=== PATIENT | male | born 1945 | race Caucasian/White ===

== ENCOUNTER 2018-04-29 00:09 | Emergency (ER) | payer MEDICARE, SELFPAY ==
[2018-04-29 00:20] VITALS: BP 160/72; PULSE 73; RESP 18; TEMP 36.8; O2SAT 100; BMI 33.9
--- NOTE | 2018-04-29 00:21 | ED.GENADULT ---
HPI - General Adult General Chief complaint: Extremity Injury, Lower Stated complaint: knee pain, elbows scraped, fall at [facility] Time Seen by Provider: 04/29/18 00:21 Source: patient Mode of arrival: ambulatory Limitations: no limitations History of Present Illness HPI narrative: Patient is a 72-year-old male. Not on blood thinners. Here for evaluation of right knee injury and abrasions to both of his elbows. He states that earlier this evening he was at the [facility] [place] when he tripped over a step. He landed on his right knee and his right elbows. Did not hit his head. Was able to get up and ambulate afterwards. Was able to continue bowling. It was after he was bowling when he sat down to eat dinner when he noticed that his right knee was swelling and becoming painful. He has had a joint replacement in this knee in the past. He did put Band-Aids over the abrasions to both of his elbows. Related Data Home Medications Medication Instructions Recorded Confirmed hydrochlorothiazide 25 mg tablet 25 mg PO DAILY 07/16/17 07/16/17 lisinopril PO 07/16/17 07/16/17 meloxicam PO 07/16/17 07/16/17 Allergies Allergy/AdvReac Type Severity Reaction Status Date / Time No Known Drug Allergies Allergy Verified 07/16/17 16:33 Review of Systems Constitutional Denies frequent falls and Denies weakness ENT Ears, Nose, Mouth, and Throat: Denies vertigo, Denies dizziness and Denies disequilibrium Cardiovascular Denies chest pain, Denies palpitations and Denies dyspnea Respiratory Denies dyspnea Musculoskeletal Comments: Right knee pain and swelling Integumentary/Breasts Comments: Abrasions to both elbows Neurologic Denies vertigo, Denies dizziness, Denies frequent falls, Denies disequilibrium and Denies weakness Endocrine Denies palpitations Hematologic/Lymphatic Denies easy bleeding and Denies easy bruising [facility] Medical History Hypertension (Acute) Social History Smoking Status: Former smoker Social History Smoking Status: Former smoker Exam Initial Vital Signs Initial Vital Signs: Vital Signs Temperature 98.3 F 04/29/18 00:20 Pulse Rate 73 04/29/18 00:20 Respiratory Rate 18 04/29/18 00:20 Blood Pressure 160/72 H 04/29/18 00:20 Pulse Oximetry 100 04/29/18 00:20 Const General: cooperative, well developed, well groomed and No acute distress Orientation: alert, awake and oriented x3 Resp Effort & Inspection: normal respiratory effort Cardio Rate: regular rate Skin Other: Patient has 1 cm x 1 cm superficial abrasions to bilateral elbows over the olecranon process. No active bleeding. Skin over the right knee has bruising but no breaks in the skin. Neuro Other: Sensation intact to light touch distal right lower extremity Extrem Other: Full range of motion of both elbows. Bilateral hips unremarkable. Patient is able to do a straight leg raise with his right leg. Does have a significant amount of swelling around the right knee with bruising on the medial aspect. No tibia/fibula tenderness. Psych Appearance: grossly normal and well kempt Procedures Joint Aspiration Joint Asp./Inject. 1: Time Out Performed: Yes Side of body: right Joint Aspirated: knee Ultrasound Guidance: No Skin Prep: Povidone-Iodine1% Local Anesthetic: lidocaine 1% Amount of anesthesia used (mL): 6 Needle Size Used: 18G Fluid Obtained: bloody Total fluid obtained (mL): 5 Patient Tolerated Procedure: Well Complications: none Course Orders Ordered: ED Orders 04/29/18 00:26 XR knee RT 3V Stat Vital Signs - 8 hr 04/29/18 00:20 Temperature 98.3 F Pulse Rate 73 Respiratory Rate 18 Blood Pressure 160/72 H Pulse Oximetry 100 Medical Decision Making Imaging Data Right knee x-ray: My impression: No fractures, no dislocations, does have soft tissue swelling and effusion MDM Narrative Medical decision making narrative: Patient is neurovascularly intact. No fractures noted on the x-rays. Does have a significant amount of swelling in his right knee. He is able to do a straight leg raise however a true evaluation of the patella/quadriceps tendon or any other cruciate ligament testing is unable to be performed secondary to the swelling. He was able to ambulate on his knee and even finished a game of bowling after his fall. Attempted to aspirate his knee. We did discuss the risks and benefits of this to include a potentially causing an infection. Two attempts at aspirating were unsuccessful. I do feel like I was in the joint but was only able to get a small amount of blood. This was done after the patient gave verbal consent. We did discuss the importance of icing his knee. He was given crutches for comfort. He was given a phone number to follow up with a local orthopedic group. He was given return precautions. His abrasions to bilateral elbows are superficial. Do not need suturing. He was given care instructions for these. Patient expressed understanding and agreement with plan. Discharge Plan Departure Patient Disposition: Home Clinical Impression: Abrasion of skin, Effusion of knee joint right Injury of knee, right Qualifiers: Encounter type: initial encounter Qualified Code(s): S89.91XA - Unspecified injury of right lower leg, initial encounter Instructions: How to Use Crutches, How To Perform RICE (Rest, Ice, Compress, Elevate), DI for Abrasion Activity Restrictions/Additional Instructions: You are only limited in her activity by the discomfort you are having. Be sure to ice your knee. Use the crutches as needed. Contact the [facility] group at [phone] for follow-up. You can also contact [phone]. This number can help you with establishing a primary doctor in the area. Return to the emergency department for any new or worsening symptoms Prescriptions: No Action hydrochlorothiazide 25 mg tablet 25 mg PO DAILY RF: 0 lisinopril PO RF: 0 meloxicam PO RF: 0
--- NOTE | 2018-04-29 00:26 | DI.RAD.S_ITS ---
PROCEDURE: XR KNEE RT 3V INDICATIONS: Fall with pain and swelling TECHNIQUE: 3 views of the knee were acquired. COMPARISON: None. FINDINGS: Bones: No fractures or dislocations. No suspicious bony lesions. Right knee arthroplasty in expected postoperative alignment. Hardware appears intact. Soft tissues: Prepatellar soft tissue swelling. Small joint effusion. Scattered vascular calcifications. IMPRESSION: Marked prepatellar soft tissue swelling. No fracture. Intact right knee arthroplasty. Dictated by: Vaibhav Sanford M.D. on 04/29/2018 at 8:14 Approved by: Vaibhav Sanford M.D. on 04/29/2018 at 8:15
[2018-04-29 01:41] VITALS: BP 144/76; PULSE 71; O2SAT 98
== END 2018-04-29 01:56 | disposition home or self-care (01) ==
PROVIDERS: Emergency Provider Emergency Medicine
DX: M25.461 Effusion, right knee (principal); S89.91XA Unspecified injury of right lower leg, initial encounter
CPT/HCPCS: 10160; 73562; 99282; 99283

== ENCOUNTER → 2018-09-23 11:36 | Outpatient (CLI) | payer MEDICARE, OTHER, SELFPAY ==
[2018-09-23 13:09] LABS: BUN Creatinine Ratio 28.6 (6-22); Blood Urea Nitrogen 20 mg/dL (9-20); Calcium 9.5 mg/dL (8.4-10.2); Carbon Dioxide 34 mmol/L (22-32); Chloride 97 mmol/L (98-107); Estimated Glomerular Filt Rate > 60.0 mL/min (>60); Glucose 174 mg/dL (80-110); HEMOLYSIS 29 (0-50); Magnesium 1.9 mg/dL (1.6-2.3); Potassium 4.6 mmol/L (3.4-5.1); Sodium 140 mmol/L (137-145)
== END ==
PROVIDERS: PCP Hospitalist; Visit Provider Hospitalist
DX: R25.2 Cramp and spasm (principal)
CPT/HCPCS: 36415; 80048; 83735

== ENCOUNTER → 2018-10-07 08:26 | Outpatient (CLI) | payer MEDICARE, OTHER, SELFPAY | PROVIDERS: PCP Hospitalist; Visit Provider Hospitalist | DX: R73.9 Hyperglycemia, unspecified (principal) | CPT/HCPCS: 36415; 83036 ==

== ENCOUNTER 2018-12-30 13:06 | Emergency (ER) | payer MEDICARE, OTHER, SELFPAY ==
--- NOTE | 2018-12-30 13:14 | DI.RAD.S_ITS ---
PROCEDURE: XR KNEE LT 3V INDICATIONS: GROUND LEVEL FALL ONTO KNEE CAP TECHNIQUE: 3 views of the knee were acquired. COMPARISON: [facility], CR, XR KNEE RT 3V, 04/29/2018, 0:31. FINDINGS: Bones: Evidence of revision total right knee arthroplasty with a constrained prosthesis. No evidence of hardware failure or loosening. No fractures or dislocations. No suspicious bony lesions. Soft tissues: Small joint effusion. No suspicious soft tissue calcifications. IMPRESSION: Expected appearance of total left knee revision arthroplasty. Dictated by: Zhen Arroyo M.D. on 12/30/2018 at 13:58 Approved by: Zhen Arroyo M.D. on 12/30/2018 at 13:59
[2018-12-30 13:21] VITALS: BP 153/74; PULSE 90; RESP 18; TEMP 36.8; O2SAT 96; BMI 34.7
--- NOTE | 2018-12-30 13:25 | PC.NURSE ---
denies head injury, denies neck or back pain.
--- NOTE | 2018-12-30 13:34 | ED_ITS ---
HPI - Extremity Injury (Lower) <AMBER Jolley - Last Filed: 12/30/18 15:16> General Chief Complaint: Extremity Injury, Lower Stated Complaint: GLF, hit knee Time Seen by Provider: 12/30/18 13:07 Mode of arrival: Wheelchair History of Present Illness HPI Narrative: 73-year-old male presents emergency department complaining of left knee pain, swelling, and bruising after falling on his left knee last night. He states he tripped over a bowling bag while bowling and landed on his knee, he was able to stand up and ambulate after the fall but complains of worsening pain with ambulation. He states it is a dull aching / that is worse with palpation and weight-bearing. He has had that knee replaced in the past and has had 2 revisions to that hardware. He denies taking any blood thinners or hitting his head. He denies calf pain, ankle pain, foot pain, syncope, chest pain, shortness of breath, nausea, vomiting, diarrhea, fevers, chills, or other concerns. Related Data Home Medications Medication Instructions Recorded Confirmed hydrochlorothiazide 25 mg tablet 25 mg PO DAILY 07/16/17 12/30/18 amlodipine 5 mg tablet 5 mg PO DAILY 09/23/18 12/30/18 citalopram 40 mg tablet 40 mg PO DAILY tab 09/23/18 12/30/18 meloxicam 15 mg disintegrating 15 mg PO DAILY 09/23/18 12/30/18 tablet omeprazole 20 mg capsule,delayed 20 mg PO DAILY 09/23/18 09/23/18 release betamethasone valerate 1 applic TOPICAL DIRECTED 12/30/18 12/30/18 calcipotriene 1 applic TOPICAL DIRECTED 12/30/18 12/30/18 terbinafine HCl 250 mg PO DAILY 12/30/18 Previous Rx's Medication Instructions Recorded lisinopril 40 mg tablet 40 mg PO DAILY #30 tab 09/23/18 hydrocodone-acetaminophen 1 tab PO Q4-6H PRN #14 tab 12/30/18 Allergies Allergy/AdvReac Type Severity Reaction Status Date / Time No Known Drug Allergies Allergy Verified 12/30/18 13:21 Review of Systems <AMBER Jolley - Last Filed: 12/30/18 15:16> Review of Systems Narrative: REVIEW OF SYSTEMS: GENERAL: Denies fever or chills. HENT: No head trauma. EYES: No double vision or vision loss. CARDIOVASCULAR: No chest pain or syncope. RESPIRATORY: No shortness of breath or cough. GASTROINTESTINAL: No nausea, vomiting, diarrhea, or constipation. GENITOURINARY: No flank pain or dysuria. MUSCULOSKELETAL: Complains of left knee pain, see HPI. INTEGUMENTARY: No rash, lesions, or pruritus. NEURO: No numbness, tingling. PSYCH: No behavior or mood changes. Patient History <AMBER Jolley - Last Filed: 12/30/18 15:16> Medical History Ankle fracture (Resolved) Ankle pain (Chronic) Carpal tunnel syndrome (Inactive) Chicken pox (Resolved ~1949) Colon polyps (Inactive ~2004) Depression (Chronic ~1979) Gastric ulcer (Inactive ~2007) Hypertension (Acute) Low testosterone (Chronic ~2007) Measles (Resolved ~1949) Mumps (Resolved ~1949) Peptic ulcer disease (Acute) Plantar warts (Inactive) Psoriasis (Chronic ~2008) Sleep apnea (Chronic ~1998) Vision disorder (Chronic) Surgical History Anesthesia (Resolved) History of knee replacement (Resolved) History of knee replacement (Resolved ~2004) History of shoulder surgery (Resolved) Family History Mother Cancer Father CAD (coronary artery disease) Stroke Grandmother Cancer Social History Smoking Status: Former smoker alcohol intake frequency: 0-2 drinks per day Substance Use Type: does not use Exam <AMBER Jolley - Last Filed: 12/30/18 15:16> Initial Vital Signs Initial Vital Signs: Vital Signs Temperature 98.2 F 12/30/18 13:21 Pulse Rate 90 12/30/18 13:21 Respiratory Rate 18 12/30/18 13:21 Blood Pressure 153/74 H 12/30/18 13:21 Pulse Oximetry 96 12/30/18 13:21 PHYSICAL EXAMINATION: GENERAL: Well groomed, alert, and cooperative. Answers questions promptly and appropriately. Vital signs noted. HENT: Normocephalic, atraumatic. EYES: Symmetrical, sclera white, no periorbital swelling. CARDIOVASCULAR: S1 and S2 sounds normal. Regular rate and rhythm, no murmurs, clicks, or bruits. No pedal edema. RESPIRATORY: Normal respiratory rate, trachea midline, airway patent. No stridor, nasal flaring or accessory muscle use. Lungs are clear in all baker. MUSCULOSKELETAL: Tenderness to palpation of left patella and surrounding joint. Significant bruising and hematoma noted to medial aspect of upper left that extends to knee and below. Three blisters noted to medial aspect of left thigh approximately 3cm x 3cm and the largest one being 8cm x 6cm. Moderate swelling noted to thigh and knee. Patient able to bear weight on left leg but walks with a limp due to pain. Patient has decreased left knee flexion, to approximately 90? due to swelling and pain, full extension intact. No surrounding erythema, no increased temp. No calf pain. Equal tone and mass bilaterally. No spinal tenderness or deformities. EXTREMITIES: CMS intact. No pedal edema. SKIN: Warm, dry, soft, appropriate color for ethnicity. No lesions, rashes, or wounds. NEURO: Alert and Oriented X 3. No sensory deficits. PSYCH: Appropriate affect and mood. <Bebe Bates DO - Last Filed: 01/01/19 07:21> Initial Vital Signs Initial Vital Signs: Vital Signs Temperature 98.2 F 12/30/18 13:21 Pulse Rate 90 12/30/18 13:21 Respiratory Rate 18 12/30/18 13:21 Blood Pressure 153/74 H 12/30/18 13:21 Pulse Oximetry 96 12/30/18 13:21 Scores <AMBER Jolley - Last Filed: 12/30/18 15:16> Wells' Criteria for DVT Active Cancer (Treatment within 6 months): No Bedridden recently >3 days or major surgery within 4 weeks: No Calf Swelling >3cm compared to other leg: No Collateral (nonvericose) superficial veins present: No Entire leg swollen: No Localized tenderness along the deep vein system: No Pitting edema, confined to symtomatic leg: No Paralysis, paresis, or recent plaster immobilization of ext: No Previously documented DVT: No Alternative dx to DVT as likely or more likely: Yes Omero criteria for DVT: -2 Course <AMBER Jolley - Last Filed: 12/30/18 15:16> Course Course Narrative: Patient was given a knee immobilizer in the emergency department. Patient was able to ambulate without difficulty. Orders Ordered: Discontinued Medications Acetaminophen (Tylenol) 975 mg PO NOW ONE Stop: 12/30/18 14:12 Last Admin: 12/30/18 14:24 Dose: Not Given Documented by: MEISENB Ketorolac Tromethamine (Toradol) 30 mg IM NOW ONE Stop: 12/30/18 14:12 Last Admin: 12/30/18 14:24 Dose: Not Given Documented by: MEISENB Consultations Consultation #1: Patient staffed with Dr. Bates. Vital Signs Vital signs: Vital Signs - 8 hr 12/30/18 13:21 12/30/18 14:43 Temperature 98.2 F Pulse Rate 90 74 Respiratory Rate 18 15 Blood Pressure 153/74 H Blood Pressure [Left Arm] 141/84 H Pulse Oximetry 96 97 <Bebe Bates DO - Last Filed: 01/01/19 07:21> Orders Ordered: Discontinued Medications Acetaminophen (Tylenol) 975 mg PO NOW ONE Stop: 12/30/18 14:12 Last Admin: 12/30/18 14:24 Dose: Not Given Documented by: MEISENB Ketorolac Tromethamine (Toradol) 30 mg IM NOW ONE Stop: 12/30/18 14:12 Last Admin: 12/30/18 14:24 Dose: Not Given Documented by: MEISENB Vital Signs Vital signs: Vital Signs - 8 hr 12/30/18 13:21 12/30/18 14:43 Temperature 98.2 F Pulse Rate 90 74 Respiratory Rate 18 15 Blood Pressure 153/74 H Blood Pressure [Left Arm] 141/84 H Pulse Oximetry 96 97 MDM - Extremity Injury (Lower) <AMBER Jolley - Last Filed: 12/30/18 15:16> Medical Records Attestation: I reviewed the patient's medical records. Lab Data Attestation: I reviewed the patient's lab results. Imaging Data Knee XR: Radiologist's impression: [address] [id number] XRay Report Signed Patient: Lam Laguna Delilah#: [id number] : 1946Acct:[id number] Age/Sex: 73 / MDate of Service: 12/30/18 Loc: ED Accession Number: [id number] Procedure: XR knee LT 3V Ordering Provider: Jacque Amor PROCEDURE: XR KNEE LT 3V INDICATIONS: GROUND LEVEL FALL ONTO KNEE CAP TECHNIQUE: 3 views of the knee were acquired. COMPARISON: [facility], CR, XR KNEE RT 3V, 04/29/2018, 0:31. FINDINGS: Bones: Evidence of revision total right knee arthroplasty with a constrained prosthesis. No evidence of hardware failure or loosening. No fractures or dislocations. No suspicious bony lesions. Soft tissues: Small joint effusion. No suspicious soft tissue calcifications. IMPRESSION: Expected appearance of total left knee revision arthroplasty. Dictated by: Zhen Arroyo M.D. on 12/30/2018 at 13:58 Approved by: Zhen Arroyo M.D. on 12/30/2018 at 13:59 MDM Narrative Medical decision making narrative: This is a 73-year-old male with a history of a left knee replacement presented to the emergency department for extensive bruising and swelling to his left knee after falling on his knee from tripping. This most likely is due to a contusion versus a fracture as X-rays are negative for any acute fractures after the reported trauma. There is no sign of a DVT at this time (well's criteria score of -2, recent trauma to the area, no calf pain), less likely compartment syndrome as patient reports slight pain to palpation and is able to ambulate on leg, there is also little to no swelling in his calf. However, patient was encouraged to watch for signs of DVT and encouraged to have close follow-up in the next week or so. Due to blisters, devan manuel was educated about signs of cellulitis and encouraged to monitor for the signs. Patient denies taking any blood thinners. Strict return precautions given for new or worsening symptoms Discharge Plan Departure Patient Disposition: Home Clinical Impression: Contusion of knee Qualifiers: Encounter type: initial encounter Laterality: right Qualified Code(s): S80.01XA - Contusion of right knee, initial encounter Discharge Date/Time: 12/30/18 14:47 Activity Restrictions/Additional Instructions: Thank you for entrusting me with your care today. As discussed, your x-rays negative for any fractures. We have given you a knee brace. Please follow up with her primary care provider in 1-2 weeks for re-evaluation of her leg. I prescribed you a pain medication. You have been prescribed a narcotic medication, this medication can make you drowsy. Do not drive while using this medication or perform activities that require mental alertness. These medications can also make you constipated, please use [id number] docusate sodium as needed for constipation. Monitor the area for signs of infection such as increased redness, increased pain, a purulent discharge. Continue to monitor the area for blood for signs of blood clots such as calf pain, worsening leg pain, or etc. Prescriptions: New hydrocodone-acetaminophen 5-325 mg tablet 1 tab PO Q4-6H PRN (Reason: pain) Qty: 14 RF: 0 No Action hydrochlorothiazide 25 mg tablet 25 mg PO DAILY RF: 0 amlodipine 5 mg tablet 5 mg PO DAILY RF: 0 meloxicam 15 mg tablet,disintegrating 15 mg PO DAILY RF: 0 omeprazole 20 mg capsule,delayed release(DR/EC) 20 mg PO DAILY RF: 0 citalopram [Celexa] 40 mg tablet 40 mg PO DAILY RF: 0 lisinopril 40 mg tablet 40 mg PO DAILY Qty: 30 RF: 5 betamethasone valerate 0.1 % ointment 1 applic TOPICAL DIRECTED RF: 0 terbinafine HCl 250 mg tablet 250 mg PO DAILY RF: 0 calcipotriene 0.005 % cream 1 applic TOPICAL DIRECTED RF: 0 Referrals: Melva Mitchell MD [Primary Care Provider] -
[2018-12-30 14:43] VITALS: BP 141/84; PULSE 74; RESP 15; O2SAT 97
== END 2018-12-30 14:47 | disposition home or self-care (01) ==
PROVIDERS: Emergency Provider Nurse Practitioner; PCP Hospitalist
DX: S80.01XA Contusion of right knee, initial encounter (principal); W18.30XA Fall on same level, unspecified, initial encounter
CPT/HCPCS: 73562; 99283

== ENCOUNTER → 2019-04-16 15:08 | Outpatient (CLI) | payer MEDICARE, OTHER, SELFPAY ==
[2019-04-16 17:08] LABS: Add Manual Diff / Slide Review NO; Basophils Absolute Auto 100 /uL (0-100); Basophils Percent Auto 0.7 % (0-2); Eosinophils Absolute Auto 200 /uL (0-450); Eosinophils Percent Auto 2.3 % (2-4); Hematocrit 46.2 % (41-53); Hemoglobin 15.4 g/dL (13.5-17.5); Lymphocytes Absolute Auto 1600 /uL (1100-4500); Lymphocytes Percent Auto 20.4 % (25-40); Mean Corpuscular HGB Conc 33.4 % (30-36); Mean Corpuscular Hemoglobin 30.2 PG (26-34); Mean Corpuscular Volume 90.4 fL (80-100); Monocytes Absolute Auto 900 /uL (0-900); Monocytes Percent Auto 11.1 % (3-14); Neutrophils Absolute Auto 5100 /uL (1500-7000); Neutrophils Percent Auto 65.5 % (50-75); Platelet Count 186 X10^3/uL (150-400); Red Blood Cell Count 5.11 X10^6/uL (4.5-5.9); Red Cell Distribution Width 13.7 % (11.6-14.8); White Blood Cell Count 7.7 X10^3/uL (4.5-11.0)
[2019-04-16 17:11] LABS: Alanine Aminotransferase 21 IU/L (<50); Albumin 3.9 g/dL (3.5-5.0); Albumin Globulin Ratio 1.3 (1.0-2.8); Alkaline Phosphatase 58 U/L (38-126); Aspartate Aminotransferase 25 IU/L (17-59); BUN Creatinine Ratio 28.6 (6-22); Bilirubin Total 0.6 mg/dL (0.2-1.3); Blood Urea Nitrogen 20 mg/dL (9-20); Calcium 9.4 mg/dL (8.4-10.2); Carbon Dioxide 37 mmol/L (22-32); Chloride 97 mmol/L (98-107); Estimated Glomerular Filt Rate > 60.0 mL/min (>60); Globulin 2.9 g/dL (1.7-4.1); Glucose 133 mg/dL (80-110); HEMOLYSIS 24 (0-50); Potassium 4.3 mmol/L (3.4-5.1); Sodium 139 mmol/L (137-145); Total Protein 6.8 g/dL (6.3-8.2)
[2019-04-16 18:19] LABS: HIV 1 & 2 Ab/Ag 4th Gen Combo NEGATIVE (NEGATIVE); Hep C Virus Ab w/Reflex Quant NEGATIVE s/c (NEGATIVE)
[2019-04-18 14:04] LABS: Hepatitis B Surf AB Imm QUANT < 5 mIU/mL (> 9)
== END ==
PROVIDERS: Referring Provider Physician Assistant; Visit Provider Physician Assistant
DX: L40.0 Psoriasis vulgaris (principal)
CPT/HCPCS: 36415; 80053; 85025; 86480; 86706; 86803; 87389

== ENCOUNTER → 2019-07-21 14:41 | Outpatient (CLI) | payer MEDICARE, OTHER, SELFPAY ==
[2019-07-21 17:35] LABS: Add Manual Diff / Slide Review NO; Basophils Absolute Auto 100 /uL (0-100); Eosinophils Absolute Auto 300 /uL (0-450); Eosinophils Percent Auto 3.7 % (2-4); Hematocrit 47.5 % (41-53); Hemoglobin 15.7 g/dL (13.5-17.5); Lymphocytes Absolute Auto 1800 /uL (1100-4500); Lymphocytes Percent Auto 24.5 % (25-40); Mean Corpuscular HGB Conc 33.2 % (30-36); Mean Corpuscular Hemoglobin 29.9 PG (26-34); Mean Corpuscular Volume 90.2 fL (80-100); Monocytes Absolute Auto 700 /uL (0-900); Monocytes Percent Auto 9.3 % (3-14); Neutrophils Absolute Auto 4500 /uL (1500-7000); Neutrophils Percent Auto 61.5 % (50-75); Platelet Count 232 X10^3/uL (150-400); Red Blood Cell Count 5.26 X10^6/uL (4.5-5.9); Red Cell Distribution Width 14.2 % (11.6-14.8); White Blood Cell Count 7.3 X10^3/uL (4.5-11.0)
[2019-07-21 17:42] LABS: Hemoglobin A1C% w Est Avg Glu 7.5 % (4.0-6.0)
[2019-07-21 17:47] LABS: Alanine Aminotransferase 26 IU/L (<50); Albumin Globulin Ratio 1.3 (1.0-2.8); Alkaline Phosphatase 69 U/L (38-126); Aspartate Aminotransferase 30 IU/L (17-59); BUN Creatinine Ratio 21.7 (6-22); Bilirubin Total 0.5 mg/dL (0.2-1.3); Blood Urea Nitrogen 18 mg/dL (9-20); Calcium 9.6 mg/dL (8.4-10.2); Carbon Dioxide 30 mmol/L (22-32); Chloride 98 mmol/L (98-107); Cholesterol 167 mg/dL (140-199); Estimated Glomerular Filt Rate > 60.0 mL/min (>60); Glucose 240 mg/dL (80-110); HDL Cholesterol 31 mg/dL (40-60); HEMOLYSIS 16 (0-50); LDL Cholesterol Calculated 57 mg/dL (<100); Potassium 4.2 mmol/L (3.4-5.1); Sodium 139 mmol/L (137-145); Triglycerides 395 mg/dL (35-150); Uric Acid 8.2 mg/dL (3.5-8.5)
[2019-07-21 17:50] LABS: Rheumatoid Factor < 8.6 IU/mL (<12.0)
[2019-07-21 18:15] LABS: Prostate Specific Antigen Scrn 1.46 ng/mL (0.1-4.0)
[2019-07-21 18:23] LABS: Erythrocyte Sedimentation Rate 5 MM/HR (0-15)
[2019-07-21 18:44] LABS: Thyroid Stimulating Hormone 1.62 uIU/mL (0.47-4.68)
[2019-07-23 17:36] LABS: ANA Screen, IFA Positive (.)
== END ==
PROVIDERS: PCP Family Medicine; Referring Provider Family Medicine; Visit Provider Family Medicine
DX: Z12.5 Encounter for screening for malignant neoplasm of prostate (principal); Z13.29 Encounter for screening for other suspected endocrine disorder; M25.50 Pain in unspecified joint; I10 Essential (primary) hypertension; R73.09 Other abnormal glucose; R79.89 Other specified abnormal findings of blood chemistry
CPT/HCPCS: 36415; 80053; 80061; 83036; 84443; 84550; 85025; 85651; 86038; 86430; G0103

== ENCOUNTER → 2019-09-10 16:45 | Outpatient (CLI) | payer MEDICARE, OTHER, SELFPAY ==
--- NOTE | 2019-09-10 16:47 | DI.RAD.S_ITS ---
PROCEDURE: XR HAND LT MIN 3V INDICATIONS: Progressive joint pain TECHNIQUE: 3 views of the hand(s) acquired. COMPARISON: None. FINDINGS: Bones: No fracture. Severe diffuse interphalangeal, carpal osteoarthritis. There is extensive sclerosis and spurring. Hook like osteophytes seen at the 2nd and 3rd metacarpal heads raise possibility of underlying deposition arthropathy. Erosive appearance seen at the 4th metacarpal head and marginal lucency seen at the 5th MCP joint. Widened appearance of the scapholunate interval. Additional marginal lucencies present at the PIP joints of the index ring and middle fingers. Subluxed appearance of the 1st MCP joint. Calcification or metallic density projecting in the region of the middle phalanx of the little finger. IMPRESSION: Extensive severe diffuse left hand osteoarthritis, with sequela suggestive of deposition arthropathy seen at the 2nd and 3rd metacarpal heads. Erosions present at the 4th and 5th MCP joints as above. Dictated by: Vaibhav Sanford M.D. on 09/10/2019 at 17:23 Approved by: Vaibhav Sanford M.D. on 09/10/2019 at 17:26
== END ==
PROVIDERS: PCP Family Medicine; Referring Provider Family Medicine; Visit Provider Family Medicine
DX: M25.542 Pain in joints of left hand (principal); M19.042 Primary osteoarthritis, left hand
CPT/HCPCS: 73130

== ENCOUNTER → 2019-12-17 08:55 | Outpatient (CLI) | payer MEDICARE, OTHER, SELFPAY ==
[2019-12-17 09:29] LABS: Alanine Aminotransferase 35 IU/L (<50); Albumin 4.2 g/dL (3.5-5.0); Albumin Globulin Ratio 1.4 (1.0-2.8); Alkaline Phosphatase 68 U/L (38-126); Aspartate Aminotransferase 32 IU/L (17-59); BUN Creatinine Ratio 28.2 (6-22); Bilirubin Total 1.1 mg/dL (0.2-1.3); Blood Urea Nitrogen 20 mg/dL (9-20); Calcium 9.5 mg/dL (8.4-10.2); Carbon Dioxide 34 mmol/L (22-32); Chloride 100 mmol/L (98-107); Estimated Glomerular Filt Rate > 60.0 mL/min (>60); Globulin 3.1 g/dL (1.7-4.1); Glucose 155 mg/dL (80-110); HEMOLYSIS < 15 (0-50); Potassium 5.2 mmol/L (3.4-5.1); Sodium 136 mmol/L (137-145); Total Protein 7.3 g/dL (6.3-8.2)
[2019-12-17 09:30] LABS: Add Manual Diff / Slide Review NO; Basophils Absolute Auto 100 /uL (0-100); Basophils Percent Auto 0.8 % (0-2); Eosinophils Absolute Auto 100 /uL (0-450); Eosinophils Percent Auto 1.6 % (2-4); Hemoglobin 16.2 g/dL (13.5-17.5); Lymphocytes Absolute Auto 1400 /uL (1100-4500); Lymphocytes Percent Auto 21.7 % (25-40); Mean Corpuscular Hemoglobin 29.8 PG (26-34); Mean Corpuscular Volume 90.2 fL (80-100); Monocytes Absolute Auto 600 /uL (0-900); Monocytes Percent Auto 9.6 % (3-14); Neutrophils Absolute Auto 4400 /uL (1500-7000); Neutrophils Percent Auto 66.3 % (50-75); Platelet Count 183 X10^3/uL (150-400); Red Blood Cell Count 5.44 X10^6/uL (4.5-5.9); Red Cell Distribution Width 14.4 % (11.6-14.8); White Blood Cell Count 6.7 X10^3/uL (4.5-11.0)
[2019-12-17 09:45] LABS: Hemoglobin A1C% w Est Avg Glu 6.9 % (4.0-6.0)
[2019-12-17 10:51] LABS: TSH w/ Reflex to FT4 1.89 uIU/mL (0.47-4.68)
== END ==
PROVIDERS: PCP Family Medicine; Referring Provider Family Medicine; Visit Provider Family Medicine
DX: E11.9 Type 2 diabetes mellitus without complications (principal); F32.9 Major depressive disorder, single episode, unspecified; K21.9 Gastro-esophageal reflux disease without esophagitis; M10.9 Gout, unspecified
CPT/HCPCS: 36415; 80053; 83036; 84443; 85025

== ENCOUNTER 2020-06-17 21:06 | Emergency (ER) | payer MEDICARE, OTHER, SELFPAY ==
--- NOTE | 2020-06-17 21:13 | DI.RAD.S_ITS ---
PROCEDURE: XR RIBS LT MIN 3V W CXR1V INDICATIONS: fall, left rib pain. TECHNIQUE: 2 views of the left ribs were acquired, along with a single view chest. COMPARISON: None. FINDINGS: Surgical changes and devices: None. Bones and chest wall: No fractures or dislocations. No suspicious bony lesions. Overlying soft tissues appear unremarkable. Lungs and pleura: No pleural effusions or pneumothorax. Lungs appear clear. Mediastinum: Mediastinal contours appear normal. Heart size is normal. IMPRESSION: No acute fracture. No osseous lesion. If symptoms and/or clinical suspicion for pathology persist, further assessment with repeat, or advanced imaging (e.g., CT or bone scan) may be helpful for further assessment. Dictated by: Yin Zeng M.D. on 06/17/2020 at 21:43 Approved by: Yin Zeng M.D. on 06/17/2020 at 21:44
[2020-06-17 21:15] VITALS: BP 147/79; PULSE 77; RESP 20; TEMP 36.4; O2SAT 95; BMI 39.5
[2020-06-17 21:22] VITALS: BP 147/79
--- NOTE | 2020-06-17 22:30 | ED_ITS ---
HPI - Fall General Chief Complaint: Fall Stated Complaint: FALL LEFT RIB PAIN Time Seen by Provider: 06/17/20 22:30 Source: patient Mode of arrival: Ambulatory Limitations: no limitations History of Present Illness HPI Narrative: The patient tripped on high Grass and fell in his yd about 3 weeks ago. He fell forward on his knees and hands. His left hand went under his trunk, striking him in the left chest when he hit the ground. There was no head, neck, or extremity injury. He is not anticoagulated. After this time he attains of daily anterior chest pain. The discomfort waxes and wanes. He has no fever. He has no cough. He denies hemoptysis. He has no palpitations. He has no abdominal complaints. There were no other injuries. Related Data Home Medications Medication Instructions Recorded Confirmed betamethasone valerate 1 applic TOPICAL DIRECTED 12/30/18 09/15/19 calcipotriene 1 applic TOPICAL DIRECTED 12/30/18 09/15/19 Previous Rx's Medication Instructions Recorded meloxicam 15 mg disintegrating 15 mg PO DAILY #90 tab 07/21/19 tablet amlodipine 5 mg tablet 5 mg PO DAILY #90 tab 08/11/19 citalopram 40 mg tablet 40 mg PO DAILY #90 tab 08/11/19 lancets 33 gauge #100 each 08/11/19 omeprazole 20 mg capsule,delayed 20 mg PO DAILY #90 cap 08/11/19 release blood sugar diagnostic #100 each 08/14/19 blood-glucose meter #1 each 08/14/19 furosemide 20 mg tablet 20 mg PO DAILY #90 tab 12/11/19 allopurinol 100 mg tablet 100 mg PO DAILY #90 tab 02/08/20 metformin 500 mg tablet 500 mg PO BID #180 tab 03/01/20 lisinopril 40 mg tablet 40 mg PO DAILY #90 tab 04/01/20 methocarbamol [Robaxin-750] 750 mg PO QID PRN #20 tab 06/17/20 Allergies Allergy/AdvReac Type Severity Reaction Status Date / Time No Known Drug Allergies Allergy Verified 06/17/20 21:15 Review of Systems Constitutional Constitutional: Denies chills and Denies fever(s) Comments: No recent illness. ENT Ears, Nose, Mouth, and Throat: Denies dizziness Comments: No head or neck injury. Cardiovascular Cardiovascular: Reports as per HPI and Denies dyspnea Respiratory Respiratory: Denies cough and Denies dyspnea Comments: No hemoptysis Gastrointestinal Gastrointestinal: Denies abdominal pain, Denies nausea and Denies vomiting Musculoskeletal Musculoskeletal: Denies numbness Comments: No neck pain. No back pain. No extremity pain. 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 Low testosterone (~2007) Measles (~1949) Mumps (~1949) Obesity (BMI 30-39.9) Obstructive sleep apnea syndrome Peptic ulcer disease Plantar warts Polyarthralgia Psoriasis (~2008) Type 2 diabetes mellitus Vision disorder Surgical History Anesthesia History of knee replacement History of knee replacement (~2004) History of shoulder surgery Family History Mother Cancer Father CAD (coronary artery disease) Stroke Grandmother Cancer Social History marital status: lives independently: Yes caregiver/support person: No Smoking Status: Former smoker Tobacco: How many years used: 20 alcohol intake: current (Less than 1 a week ) Smoking Status: Former smoker alcohol intake frequency: 0-2 drinks per day Substance Use Type: does not use Exam Initial Vital Signs Initial Vital Signs: Vital Signs Temperature 97.5 F L 06/17/20 21:15 Pulse Rate 77 06/17/20 21:15 Respiratory Rate 20 06/17/20 21:15 Blood Pressure 147/79 H 06/17/20 21:15 Pulse Oximetry 95 06/17/20 21:15 Const General: cooperative and well developed Nutritional Appearance: well nourished [facility] Head: normocephalic and atraumatic Chest Other: Palpable left anterior chest wall pain. No crepitus. No palpable defects. No evidence of hematoma or abrasion. Resp Effort & Inspection: normal respiratory effort and able to speak in complete sentences Auscultation: clear to auscultation bilaterally, no rales, no rhonchi and no wheezes Cardio Rate: regular rate Rhythm: regular rhythm Heart Sounds: S1 normal, S2 normal, no click, no gallops, no murmurs and no rubs Pulses: normal peripheral pulses GI Inspection: non-distended Palpation: soft, no hepatosplenomegaly, No guarding and No tender Auscultation: normal bowel sounds Skin General: no rashes or lesions noted and No petechiae Neuro General: patient alert, patient oriented x3, gait normal and no focal motor deficits Speech: speech normal Course Orders Ordered: ED Orders 06/17/20 21:13 XR ribs LT min 3V w CXR1V Stat Vital Signs Vital signs: Vital Signs - 8 hr 06/17/20 21:15 06/17/20 21:22 Temperature 97.5 F L Pulse Rate 77 Respiratory Rate 20 Blood Pressure 147/79 H 147/79 H Pulse Oximetry 95 MDM - Fall Imaging Data CXR/left ribs: Radiologist's Impression: No acute injury. Discharge Plan Departure Patient Disposition: Home Clinical Impression: Chest wall contusion Instructions: DI for Rib Contusion Activity Restrictions/Additional Instructions: Advil 2 tablets every 6 hours as needed for pain. Robaxin every 6 hours as needed for muscle spasm. This should help for comfort. This medication should not bees a sedative, but test at home before using it. You may take the Advil on Robaxin at the same time. If not improved in 3-4 weeks follow-up with your doctor. Return here as necessary. Your prescription has been electronically forwarded to the [facility] pharmacy in [place]. Prescriptions: New methocarbamol [Robaxin-750] 750 mg tablet 750 mg PO QID PRN (Reason: muscle spasm) Qty: 20 RF: 0 No Action (DME) blood-glucose meter [Contour Next EZ Meter] Kit See Rx Instructions .ROUTE .MEDSUPPLY Qty: 1 RF: 0 (DME) blood sugar diagnostic [Contour Next Test Strips] Strip See Rx Instructions .ROUTE .MEDSUPPLY Qty: 100 RF: 5 allopurinol 100 mg tablet 100 mg PO DAILY Qty: 90 RF: 1 metformin 500 mg tablet 500 mg PO BID Qty: 180 RF: 3 lisinopril 40 mg tablet 40 mg PO DAILY Qty: 90 RF: 1 meloxicam 15 mg tablet,disintegrating 15 mg PO DAILY Qty: 90 RF: 1 furosemide 20 mg tablet 20 mg PO DAILY Qty: 90 RF: 3 amlodipine 5 mg tablet 5 mg PO DAILY Qty: 90 RF: 1 omeprazole 20 mg capsule,delayed release(DR/EC) 20 mg PO DAILY Qty: 90 RF: 1 (DME) lancets [BD Ultra Fine Lancets] 33 gauge misc See Rx Instructions .ROUTE .MEDSUPPLY Qty: 100 RF: 5 citalopram [Celexa] 40 mg tablet 40 mg PO DAILY Qty: 90 RF: 1 betamethasone valerate 0.1 % ointment 1 applic TOPICAL DIRECTED RF: 0 calcipotriene 0.005 % cream 1 applic TOPICAL DIRECTED RF: 0 Referrals: Kervin Canales, [Primary Care Provider] -
[2020-06-17 22:46] VITALS: BP 152/70; PULSE 76; RESP 20; O2SAT 98
== END 2020-06-17 22:47 | disposition home or self-care (01) ==
PROVIDERS: Emergency Provider Emergency Medicine; PCP Family Medicine
DX: S20.219A Contusion of unspecified front wall of thorax, initial encounter (principal); W19.XXXA Unspecified fall, initial encounter
CPT/HCPCS: 71101; 99281; 99283

== ENCOUNTER → 2020-08-30 15:13 | Outpatient (CLI) | payer MEDICARE, OTHER, SELFPAY ==
--- NOTE | 2020-08-30 15:16 | DI.RAD.S_ITS ---
PROCEDURE: XR RIBS BI 3V INDICATIONS: SOB, back, abdominal pain TECHNIQUE: 4 views of the bilateral ribs were acquired. COMPARISON: None. FINDINGS: Surgical changes and devices: None. Bones and chest wall: No fractures or dislocations. No suspicious bony lesions. Overlying soft tissues appear unremarkable. Lungs and pleura: The visualized lung appears clear. No pleural effusions or pneumothorax are visible. IMPRESSION: Trauma is not found. Source of pain is not identified. Quality of visualization is relatively limited by body habitus. Depending on the clinical status nuclear medicine bone scan may be warranted. However, CT scanning through the chest abdomen and pelvis can provide excellent survey overview. Dictated by: Daron Jesus M.D. on 08/30/2020 at 16:42 Approved by: Daron Jesus M.D. on 08/30/2020 at 16:43
--- NOTE | 2020-08-30 15:16 | DI.RAD.S_ITS ---
PROCEDURE: XR THORACIC SPINE 3V INDICATIONS: SOB, back abdominal pain TECHNIQUE: 3 views of the thoracic spine were acquired. COMPARISON: None. FINDINGS: Bones: No fractures or dislocations. No suspicious bony lesions. 12 pairs of ribs are noted, and appear intact where visualized. Soft tissues: No paravertebral stripe thickening. IMPRESSION: Moderate degenerative disc disease along the thoracic spine without compression fracture. No subluxation is present. Dictated by: Daron Jesus M.D. on 08/30/2020 at 16:41 Approved by: Daron Jesus M.D. on 08/30/2020 at 16:41
--- NOTE | 2020-08-30 15:16 | DI.RAD.S_ITS ---
PROCEDURE: XR CHEST 2V INDICATIONS: SOB, back abdominal pain TECHNIQUE: 2 views of the chest were acquired. COMPARISON: [facility], CR, XR CHEST 1 VIEW, 09/19/2019, 19:37. FINDINGS: Surgical changes and devices: None. Lungs and pleura: Lungs are mildly edematous. No pleural effusions or pneumothorax. Mediastinum: Mediastinal contours are normal. Heart size is normal. Bones and chest wall: No suspicious bony abnormalities. Soft tissues appear unremarkable. IMPRESSION: Mild alveolar edema pattern, without cardiomegaly. The appearance could represent an early manifestation of cardiogenic pulmonary edema which has not yet produced cardiomegaly. Please also correlate for presence or absence of atypical/viral pneumonia. Dictated by: Daron Jesus M.D. on 08/30/2020 at 16:40 Approved by: Daron Jesus M.D. on 08/30/2020 at 16:40
--- NOTE | 2020-08-30 15:16 | DI.RAD.S_ITS ---
PROCEDURE: XR ABDOMEN MIN 2V INDICATIONS: SOB, back, abdominal pain TECHNIQUE: 2 views of the abdomen were acquired. COMPARISON: None. FINDINGS: Surgical changes and devices: None. Bowel: No pneumoperitoneum. The bowel gas pattern is normal. Soft tissues: No masses; visualized solid organ contours appear normal in size. No suspicious abdominal calcifications. Bones: No suspicious bony abnormalities. IMPRESSION: Nonspecific bowel gas pattern, mild convex leftward scoliosis at the low lumbosacral spine and also mild convex rightward scoliosis at the upper lumbosacral spine. There is no sign of intestinal obstruction or perforation. Depending on the clinical status follow-up by CT scanning may become necessary. Dictated by: Daron Jseus M.D. on 08/30/2020 at 16:41 Approved by: Daron Jesus M.D. on 08/30/2020 at 16:42
[2020-08-30 16:16] LABS: Add Manual Diff / Slide Review NO; Basophils Absolute Auto 100 /uL (0-100); Basophils Percent Auto 0.8 % (0-2); Eosinophils Absolute Auto 100 /uL (0-450); Eosinophils Percent Auto 1.8 % (2-4); Hematocrit 45.5 % (41-53); Lymphocytes Absolute Auto 1700 /uL (1100-4500); Lymphocytes Percent Auto 21.1 % (25-40); Mean Corpuscular HGB Conc 32.9 % (30-36); Mean Corpuscular Hemoglobin 29.7 PG (26-34); Mean Corpuscular Volume 90.4 fL (80-100); Monocytes Absolute Auto 1000 /uL (0-900); Monocytes Percent Auto 12.1 % (3-14); Neutrophils Absolute Auto 5000 /uL (1500-7000); Neutrophils Percent Auto 64.2 % (50-75); Platelet Count 233 X10^3/uL (150-400); Red Blood Cell Count 5.03 X10^6/uL (4.5-5.9); Red Cell Distribution Width 13.9 % (11.6-14.8); White Blood Cell Count 7.8 X10^3/uL (4.5-11.0)
[2020-08-30 16:28] LABS: Alanine Aminotransferase 34 IU/L (<50); Albumin 4.1 g/dL (3.5-5.0); Albumin Globulin Ratio 1.5 (1.0-2.8); Alkaline Phosphatase 65 U/L (38-126); Aspartate Aminotransferase 35 IU/L (17-59); BUN Creatinine Ratio 26.2 (6-22); Bilirubin Total 0.9 mg/dL (0.2-1.3); Blood Urea Nitrogen 22 mg/dL (9-20); Calcium 9.5 mg/dL (8.4-10.2); Carbon Dioxide 30 mmol/L (22-32); Chloride 102 mmol/L (98-107); Estimated Glomerular Filt Rate > 60.0 mL/min (>60); Globulin 2.7 g/dL (1.7-4.1); Glucose 145 mg/dL (80-110); HEMOLYSIS < 15 (0-50); Potassium 4.3 mmol/L (3.4-5.1); Sodium 139 mmol/L (137-145); Total Protein 6.8 g/dL (6.3-8.2)
[2020-08-30 17:19] LABS: TSH w/ Reflex to FT4 1.66 uIU/mL (0.47-4.68)
== END ==
PROVIDERS: PCP Family Medicine; Referring Provider Family Medicine; Visit Provider Family Medicine
DX: M54.9 Dorsalgia, unspecified (principal); M51.34 Other intervertebral disc degeneration, thoracic region; M41.87 Other forms of scoliosis, lumbosacral region; R06.02 Shortness of breath; R10.9 Unspecified abdominal pain; E11.9 Type 2 diabetes mellitus without complications; I10 Essential (primary) hypertension; Z13.29 Encounter for screening for other suspected endocrine disorder; Z82.49 Family history of ischemic heart disease and other diseases of the circulatory system; Z87.891 Personal history of nicotine dependence
CPT/HCPCS: 36415; 71046; 71110; 72072; 74019; 80053; 83036; 84443; 85025

== ENCOUNTER → 2020-09-08 09:51 | Outpatient (CLI) | payer MEDICARE, OTHER, SELFPAY ==
--- NOTE | 2020-09-08 09:53 | DI.CT.S_ITS ---
PROCEDURE: CT ABDOMEN W CON INDICATIONS: SOB, back abdominal pain TECHNIQUE: After the administration of oral and intravenous contrast, 5 mm thick sections acquired from the diaphragms to the iliac crests. 5 mm thick coronal and sagittal reformats were acquired. For radiation dose reduction, the following was used: automated exposure control, adjustment of mA and/or kV according to patient size. COMPARISON: None. FINDINGS: Image quality: Excellent. Lung bases: Lung bases are clear. Heart size is normal. Mild coronary artery calcifications. Solid organs: There is moderate diffuse hepatic steatosis with hypertrophy of the left lobe and a relatively small right lobe suggesting possible cirrhotic change. Gallbladder is unremarkable. Biliary system is non dilated. Pancreas enhances normally. Spleen is normal in size and enhancement. No adrenal nodules. Kidneys are normal in size, without hydronephrosis. Peritoneum and bowel: Contrast enhanced bowel loops appear normal in caliber. No free fluid or air. Nodes and vessels: No retroperitoneal or mesenteric adenopathy by size criteria. Aorta and inferior vena cava are normal in size. Atherosclerotic calcifications involving the aorta and bilateral common iliac arteries. Bones: Severe degenerative arthritis of the lumbar spine. There is marked bilateral facet arthropathy at L4-L5 resulting in severe canal stenosis. There is at least moderate canal stenosis at L2-L3. There is severe disc height loss and vacuum disc phenomenon at this level. There is also severe left foraminal narrowing at this level. There is severe right foraminal narrowing at L4-L5. Miscellaneous: No ventral hernias. IMPRESSION: 1. Moderate diffuse hepatic steatosis, question cirrhosis. 2. Severe lumbar degenerative change as described above, with multilevel canal stenosis and multilevel foraminal narrowing. 3. Coronary artery disease. Dictated by: Zhen Arroyo M.D. on 09/08/2020 at 12:25 Approved by: Zhen Arroyo M.D. on 09/08/2020 at 12:33
== END ==
PROVIDERS: PCP Family Medicine; Referring Provider Family Medicine; Visit Provider Family Medicine
DX: M54.9 Dorsalgia, unspecified (principal); K76.0 Fatty (change of) liver, not elsewhere classified; E27.9 Disorder of adrenal gland, unspecified; R06.02 Shortness of breath; R10.9 Unspecified abdominal pain; M47.816 Spondylosis without myelopathy or radiculopathy, lumbar region; M48.061 Spinal stenosis, lumbar region without neurogenic claudication; I25.10 Atherosclerotic heart disease of native coronary artery without angina pectoris; I70.0 Atherosclerosis of aorta; E11.9 Type 2 diabetes mellitus without complications; I10 Essential (primary) hypertension; Z13.29 Encounter for screening for other suspected endocrine disorder; Z82.49 Family history of ischemic heart disease and other diseases of the circulatory system; Z87.891 Personal history of nicotine dependence
CPT/HCPCS: 74160; Q9967

== ENCOUNTER → 2020-09-27 08:12 | Outpatient (CLI) | payer MEDICARE, OTHER, SELFPAY ==
--- NOTE | 2020-09-27 08:19 | DI.ECHO.S_ITS ---
[facility]---------[facility] +---------+ : : [address] : : : : [id number] : : : : Phone: [phone]+ Echocardiogram Report + + :Name: JAZLYN BENAVIDES Study Date: 09/27/2020 Height: 66 in : :[facility] ReadingLocation: Weight: 230 lb : : Gender: Male BSA: 2.1 m2 : :: 1945 Age: 74 yrs BP: 169/94 mmHg: :Reason For Study: SHORTNESS OF BREATH : :Ordering Physician: LACI, : :AKHIL Performed By: Anali Coronado : :Referring: AKHIL AGUERO : + + Interpretation Summary The left ventricle is mildly dilated. The ejection fraction is estimated to be 40-45%. There appears to be severe hypokinesis of inferior wall, basal to mid inferior septum as well as basal to mid inferior lateral wall and mid anterolateral wall. The right ventricle is normal in size and function. Limited study. No color Doppler was performed to assess valvular pathologies. Procedure: A two-dimensional transthoracic echocardiogram with color flow and Doppler was performed in limited views only to assess ejection fraction and wall motion.. The study quality was technically adequate. A contrast injection of Definity was performed to improve assessment of LV function. Contrast was injected into an intravenous site in the left arm. Carotid Doppler was not performed. The heart rate ranged between 59-81 bpm during the study. The patient was in normal sinus rhythm during the exam. The patient had a bundle branch block rhythm during the exam. Left Ventricle: There is mild concentric left ventricular hypertrophy. The left ventricle is mildly dilated. The estimated left ventricular end diastolic volume is 179 ml. There is no thrombus. The ejection fraction is estimated to be 40-45%. There appears to be severe hypokinesis of inferior wall, basal to mid inferior septum as well as basal to mid inferior lateral wall and mid anterolateral wall. Right Ventricle: The right ventricle is normal in size and function. Atria: The left atrium is moderately dilated. Right atrial size is normal. Mitral Valve: There is mild mitral annular calcification. The mitral valve leaflets are mildly calcified. Aortic Valve: The aortic valve is trileaflet. The aortic valve is slightly calcified. The aortic valve opens well. Pericardium/ Pleura There is no pericardial effusion. There is an anterior echo-free space consistent with a fat pad. There is no pleural effusion. MMode/2D Measurements & Calculations LVIDd: 6.0 cm LA A2 area: 22.2 cm2 LVIDs: 4.6 cm LA A4 area: 22.5 cm2 FS: 22.6 % LA length (vol): 5.8 cm IVSd: 1.1 cm LA vol: 73.6 ml LVPWd: 1.2 cm LA vol index: 34.7 ml/m2 LV cullen. diameter/BSA (cm/m^2): 2.8 LV sys. diameter/BSA (cm/m^2): 2.2 RA long axis: 5.0 cm RVD1 (basal): 3.7 cm RA area: 13.3 cm2 TAPSE: 2.1 cm RA vol: 30.4 ml RA : 14.3 ml/m2 Reading Physician:02:28 PM
[2020-09-27 10:39] LABS: COVID19 -Nasal RAPID Negative (Negative)
--- NOTE | 2020-09-28 05:19 | DI.NM.S_ITS ---
PROCEDURE: Exercise treadmill stress test without imaging. DATE OF SERVICE: September 27, 2020 ORDERING PROVIDER: Kervin Canales DO INDICATIONS: The patient is an obese 74-year-old male with exertional fatigue. FINDINGS: 1. The patient was able to exercise for 3 minutes 7 seconds on a standard Ha protocol suggesting severely reduced exercise capacity with an DOLORES of +42%, achieving 4.6 METS. 2. He had a normal heart rate and blood pressure response, achieving a maximum heart rate of 128 BPM (88% of his predicted maximum). 3. He had no chest discomfort but had limiting dyspnea and knee pain. 4. His resting ECG shows sinus rhythm with frequent PACs and nonspecific ST and T-wave abnormalities in the inferolateral leads which become mildly accentuated with stress but remain nonspecific because of the baseline abnormality. He had rare PAC and PVC with stress but no other ectopy. IMPRESSION: 1. Nondiagnostic exercise treadmill study for ischemia with baseline ST and T- wave abnormalities which become accentuated with stress. This is nonspecific for ischemia and if there is a high clinical concern for underlying ischemic heart disease, a pharmacologic nuclear perfusion imaging test should be considered. 2. Severely reduced exercise capacity with exertional dyspnea and knee pain but no angina. He had rare PACs and premature ventricular contractions, but no concerning ectopy. Lam Laguna - PRITESH/festus/aleah doc#: [id number]/job#: [id number] dd: 09/27/2020 17:41:00 dt: 09/28/2020 04:49:00 DICTATING MD/COPIES TO: Nathaniel Steen MD; Kervin Canales DO COPIES MNE: SELINA;
== END ==
PROVIDERS: PCP Family Medicine; Referring Provider Family Medicine; Visit Provider Family Medicine
DX: R06.02 Shortness of breath (principal); E66.9 Obesity, unspecified; R53.83 Other fatigue; R10.9 Unspecified abdominal pain; M54.9 Dorsalgia, unspecified; Z13.29 Encounter for screening for other suspected endocrine disorder; I10 Essential (primary) hypertension; E11.9 Type 2 diabetes mellitus without complications; Z20.822 Contact with and (suspected) exposure to COVID-19; Z82.49 Family history of ischemic heart disease and other diseases of the circulatory system; Z87.891 Personal history of nicotine dependence
CPT/HCPCS: 87635; 93017; 93307; Q9957

== ENCOUNTER → 2021-01-02 14:44 | Outpatient (CLI) | payer MEDICARE, OTHER, SELFPAY ==
[2021-01-02 16:08] LABS: COVID19 -Nasal RAPID Negative (Negative)
== END ==
PROVIDERS: PCP Family Medicine; Visit Provider Nurse Practitioner Family
DX: Z20.822 Contact with and (suspected) exposure to COVID-19 (principal)
CPT/HCPCS: 87635; C9803

== ENCOUNTER → 2021-01-03 08:37 | Outpatient (CLI) | payer MEDICARE, OTHER, SELFPAY ==
--- NOTE | 2021-01-03 | DI.NM.S_ITS ---
PROCEDURE: NM DAYNE PERF SPECT R&S PHARM Rest and pharmacological stress myocardial perfusion SPECT with gated imaging and ejection fraction RADIOPHARMACEUTICAL: 25.8 mCi Tc-99m tetrafosmin IV at rest and 26.2 mCi Tc-99m tetrafosmin IV at peak effect of pharmacological stress. [id number] was performed. INDICATIONS: Shortness of breath TECHNIQUE: Radiopharmaceutical was injected at peak stress test, and also at rest. SPECT images were obtained. SPECT myocardial perfusion images were displayed in short axis, horizontal long axis, and vertical long axis views. Gated images were reviewed using FitVia software. COMPARISON: None. CARDIAC STRESS: A pharmacologic stress test was performed under the supervision of an attending staff, using an infusion of regadenoson. Hemodynamic data: There is normal blood pressure and heart rate response to pharmacologic stress. Symptoms: The patient denied anginal chest pain. EKG: No diagnostic changes of ischemia; no ectopy. FINDINGS: Raw data: There is good myocardial uptake of radiotracer. No significant motion artifacts. Ehal-oc-vlzfz ratio is 0.53 (normal is less than 0.38 for tetrafosmin tracer). Left ventricle function: Gated images demonstrate normal left ventricular wall thickening. No segmental wall motion abnormalities. No transient ischemic dilation; TID is 0.89 (normal less than 1.3). Left ventricle resting end diastolic volume is 195 mL. Left ventricle stress ejection fraction is calculated at 50% but visually appears lower; normal range is above 45%. Myocardial perfusion: There is a large size, moderate to severe fixed intensity inferior and inferoseptal wall defect with associated hypokinesia on the gated images. IMPRESSION: 1. No evidence of pharmacologic induced ischemia. 2. Inferior and inferoseptal wall scar. 3. Increased LV EDV. 4. Visually reduced ejection fraction, approximately 45%. Dictated by: Margarita Forde D.O. on 01/04/2021 at 16:00 Approved by: Margarita Forde M.D. on 01/04/2021 at 16:04
== END ==
PROVIDERS: PCP Family Medicine; Referring Provider Internal Medicine Cardiovascular Disease; Visit Provider Internal Medicine Cardiovascular Disease
DX: Z13.6 Encounter for screening for cardiovascular disorders (principal); R06.02 Shortness of breath
CPT/HCPCS: 78452; 93017; A9502; J2785

== ENCOUNTER 2021-02-14 10:44 | Emergency (ER) | payer MEDICARE, OTHER, SELFPAY ==
[2021-02-14] VITALS (15 sets, daily range): BP systolic 114–158; BP diastolic 55–81; PULSE 80–91; RESP 14–20; TEMP 36.8; O2SAT 95–99; BMI 37.1
--- NOTE | 2021-02-14 11:27 | DI.RAD.S_ITS ---
PROCEDURE: XR CHEST 1V INDICATIONS: chest pain TECHNIQUE: One view of the chest was acquired. COMPARISON: [facility], CR, XR CHEST 1 VIEW, 09/19/2019, 19:37. [facility], CR, XR RIBS BI 3V, 08/30/2020, 15:21. [facility], CR, XR CHEST 2V, 08/30/2020, 15:21. FINDINGS: Surgical changes and devices: None. Lungs and pleura: Patchy mild interstitial prominence can be seen. No pleural effusions or pneumothorax. Low lung volumes are noted. This causes a crowded appearance to the lung markings and limits evaluation. Mediastinum: Mediastinal contours appear normal. Heart size is normal. Atherosclerotic calcification of the aortic arch is noted. Bones and chest wall: No suspicious bony lesions. Age-appropriate bony degenerative changes are seen. Overlying soft tissues appear unremarkable. IMPRESSION: Low lung volumes with mild patchy interstitial prominence. Differential diagnosis includes artifact, pulmonary edema and atypical infection (including COVID pneumonia). If clinically appropriate, a short-term followup chest series (with PA and lateral views) performed in deep inspiration is suggested for further evaluation. Dictated by: Migel Wise M.D. on 02/14/2021 at 10:42 Approved by: Migel Wise M.D. on 02/14/2021 at 10:45
[2021-02-14 11:47] LABS: Add Manual Diff / Slide Review NO; Basophils Absolute Auto 100 /uL (0-100); Eosinophils Absolute Auto 0 /uL (0-450); Eosinophils Percent Auto 0.3 % (2-4); Hematocrit 40.7 % (41-53); Hemoglobin 13.8 g/dL (13.5-17.5); Lymphocytes Absolute Auto 1300 /uL (1100-4500); Lymphocytes Percent Auto 14.4 % (25-40); Mean Corpuscular HGB Conc 33.9 % (30-36); Mean Corpuscular Hemoglobin 29.7 PG (26-34); Mean Corpuscular Volume 87.5 fL (80-100); Monocytes Absolute Auto 800 /uL (0-900); Monocytes Percent Auto 8.4 % (3-14); Neutrophils Absolute Auto 6900 /uL (1500-7000); Neutrophils Percent Auto 75.9 % (50-75); Platelet Count 192 X10^3/uL (150-400); Red Blood Cell Count 4.66 X10^6/uL (4.5-5.9); Red Cell Distribution Width 14.5 % (11.6-14.8); White Blood Cell Count 9.1 X10^3/uL (4.5-11.0)
[2021-02-14 11:53] LABS: INR 2.1 (0.9-1.3); Prothrombin Time 24.7 SECONDS (10.1-12.7)
[2021-02-14 11:55] LABS: PTT Partial Thromboplastin Tim 37 SECONDS (26.4-36.2)
[2021-02-14 11:57] LABS: Alanine Aminotransferase 36 IU/L (<50); Albumin 3.5 g/dL (3.5-5.0); Albumin Globulin Ratio 1.1 (1.0-2.8); Alkaline Phosphatase 53 U/L (38-126); Aspartate Aminotransferase 33 IU/L (17-59); BUN Creatinine Ratio 17.4 (6-22); Bilirubin Total 1.2 mg/dL (0.2-1.3); Blood Urea Nitrogen 12 mg/dL (9-20); Calcium 9.2 mg/dL (8.4-10.2); Carbon Dioxide 34 mmol/L (22-32); Chloride 99 mmol/L (98-107); Creatine Kinase 51 U/L (55-170); Estimated Glomerular Filt Rate > 60.0 mL/min (>60); Globulin 3.1 g/dL (1.7-4.1); Glucose 229 mg/dL (80-110); HEMOLYSIS < 15 (0-50); Lipase 102 U/L (23-300); Potassium 4.3 mmol/L (3.4-5.1); Sodium 133 mmol/L (137-145); Total Protein 6.6 g/dL (6.3-8.2)
[2021-02-14 12:09] LABS: Troponin I 0.019 ng/mL (0.01-0.034)
--- NOTE | 2021-02-14 13:32 | DI.US.S_ITS ---
PROCEDURE: US PERIPH VENOUS LOW EXTREM BI INDICATIONS: PAIN. HISTORY OF DEEP VEIN THROMBOSIS. TECHNIQUE: Real-time imaging, as well as color and pulse Doppler interrogation, were performed of the deep veins of both legs from the inguinal ligament to the popliteal fossa. COMPARISON: None. FINDINGS: Right: The common femoral, femoral and popliteal veins are normally compressible, and free of intraluminal thrombus. Color and pulse Doppler demonstrate normal phasic intravascular flow. There is normal augmentation response to distal compression maneuver. Left: Occlusive deep venous thrombosis can be seen on the left involving the proximal to mid femoral vein through the popliteal vein. Additional areas of left-sided deep venous thrombosis are not seen. Overall scan quality is limited secondary to decreased penetration. IMPRESSION: A moderate burden left lower extremity deep venous thrombosis can be seen. Dictated by: Migel Wise M.D. on 02/14/2021 at 13:34 Approved by: Migel Wise M.D. on 02/14/2021 at 13:35
--- NOTE | 2021-02-14 17:19 | ED.EXTPRO ---
HPI - Extremity Problem General Chief complaint: Extremity Problem,Nontraumatic Stated complaint: Leg pain on both sides from waist down Time Seen by Provider: 02/14/21 13:53 Source: patient Mode of arrival: Wheelchair History of Present Illness HPI Narrative: 75-year-old gentleman with history of recently diagnosed bilateral DVT and pulmonary embolism it would be Hospital was hospitalized and eventually discharged home with Elishalonda and is doing quite well. Additional medical problems include diabetes, reflux, hypertension hyperlipidemia congestive heart failure. He comes in today complaining of increasing bilateral lower extremity pain and isn't sure if there is increased swelling or not. He describes the pain as starting in his low back radiating into his thighs and worsening over the last 3 days. He has not had similar pain he has noticed over the last 3 months that he has lost a significant amount of muscle mass and is having more weakness in his lower extremities. He describes no fevers cough, chest pain, palpitations, vomiting, diarrhea, dysuria. He has had no black or bloody stools and no bleeding from the gums. Related Data Home Medications Medication Instructions Recorded Confirmed betamethasone valerate 0.1 % 1 applic TOPICAL DIRECTED 12/30/18 11/07/20 topical ointment calcipotriene 0.005 % topical cream 1 applic TOPICAL DIRECTED 12/30/18 11/07/20 Previous Rx's Medication Instructions Recorded meloxicam 15 mg disintegrating 15 mg PO DAILY #90 tab 07/21/19 tablet lancets 33 gauge (BD Ultra Fine #100 each 08/11/19 Lancets) blood sugar diagnostic (Contour #100 each 08/14/19 Next Test Strips) blood-glucose meter (Contour Next #1 each 08/14/19 EZ Meter) metformin 500 mg tablet 500 mg PO BID #180 tab 03/01/20 methocarbamol 750 mg tablet 750 mg PO QID PRN #20 tab 06/17/20 (Robaxin-750) amlodipine 5 mg tablet 5 mg PO DAILY #90 tab 08/16/20 omeprazole 20 mg capsule,delayed 20 mg PO DAILY #90 cap 08/16/20 release citalopram 40 mg tablet (Celexa) 40 mg PO DAILY #90 tab 08/30/20 allopurinol 100 mg tablet 100 mg PO DAILY #90 tab 10/11/20 lisinopril 40 mg tablet 40 mg PO DAILY #90 tab 10/11/20 furosemide 20 mg tablet See Rx Instructions .ROUTE 12/26/20 .COMPLEX #90 tab oxycodone-acetaminophen 5 mg-325 1 tab PO Q6H PRN #14 tab 02/14/21 mg tablet (Percocet) Allergies Allergy/AdvReac Type Severity Reaction Status Date / Time No Known Drug Allergies Allergy Verified 02/14/21 11:23 Review of Systems Review of Systems Narrative: Remainder of complete review of systems is otherwise unremarkable except for that included in the HPI. Patient History Medical History Ankle fracture Ankle pain Carpal tunnel syndrome Chicken pox (~1949) Colon polyps (~2004) Depression (~1979) Fatigue Gastric ulcer (~2007) GERD (gastroesophageal reflux disease) Gout Hypertension 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 Low testosterone (~2007) Lumbar stenosis with neurogenic claudication Measles (~1949) Mumps (~1949) Obesity (BMI 30-39.9) Obstructive sleep apnea syndrome Peptic ulcer disease Plantar warts Polyarthralgia Psoriasis (~2008) Steatosis Type 2 diabetes mellitus Vision disorder Surgical History Anesthesia History of knee replacement History of knee replacement (~2004) History of shoulder surgery Family History Mother Cancer Father CAD (coronary artery disease) Stroke Grandmother Cancer Social History marital status: lives independently: Yes caregiver/support person: No Smoking Status: Former smoker Tobacco: How many years used: 20 alcohol intake: current (Less than 1 a week ) Smoking Status: Former smoker alcohol intake frequency: 0-2 drinks per day Substance Use Type: does not use Exam Initial Vital Signs Initial Vital Signs: Vital Signs Temperature 98.3 F 02/14/21 11:16 Pulse Rate 91 H 02/14/21 11:16 Respiratory Rate 14 02/14/21 11:16 Blood Pressure 151/68 H 02/14/21 11:16 Pulse Oximetry 97 02/14/21 11:16 General: Chronically ill-appearing but in no acute distress. Able to give a complete and coherent history. Well-nourished well-developed HEENT: Moist mucous membranes, normal sclera with reactive pupils, Neck: No JVD, supple Respiratory: Lungs are clear to auscultation, no wheezing no rales no rhonchi. Full and symmetrical air movement Cardiac: Regular rate and rhythm no murmurs no bruits Abdomen: Soft, nontender, good bowel tones, no flank pain Skin: Warm and dry, no rashes Neurologic: Globally weak butGrossly neurologically intact with no obvious asymmetries or abnormalities Extremities: 3+ edema left lower extremity 2+ right lower extremity. Does not have chronic venous stasis changes and there is no seeping from the lower extremities. Psych: Cooperative, appropriate insight and affect Course Orders Ordered: ED Orders 02/14/21 11:27 XR chest 1V Stat EKG-12 Lead Stat 02/14/21 11:35 Complete Blood Count AUTO DIFF Stat Comprehensive Metabolic Panel Stat Lipase Stat Magnesium Stat Partial Thromboplastin Time Stat Prothrombin Time INR Stat Troponin & CK Cardiac Panel Stat 02/14/21 13:32 US periph venous low extrem bi Stat Vital Signs Vital signs: Vital Signs - 8 hr 02/14/21 11:16 02/14/21 11:55 02/14/21 12:00 Temperature 98.3 F Pulse Rate 91 H Respiratory Rate 14 18 Blood Pressure 151/68 H 147/77 H 140/74 Pulse Oximetry 97 02/14/21 12:30 02/14/21 12:40 02/14/21 13:00 Temperature Pulse Rate 82 80 Respiratory Rate Blood Pressure 115/62 119/61 Pulse Oximetry 95 96 02/14/21 13:30 02/14/21 14:00 02/14/21 14:30 Temperature Pulse Rate 86 86 81 Respiratory Rate Blood Pressure 144/68 H 114/55 L 139/75 Pulse Oximetry 96 98 96 02/14/21 15:00 02/14/21 15:30 02/14/21 16:00 Temperature Pulse Rate 85 84 86 Respiratory Rate 20 18 Blood Pressure 130/78 143/81 H 158/80 H Pulse Oximetry 97 96 99 02/14/21 16:30 Temperature Pulse Rate 85 Respiratory Rate Blood Pressure 149/77 H Pulse Oximetry 98 MDM - Extremity (Nontraumatic) Lab Data Result diagrams: 02/14/21 11:35 02/14/21 11:35 Labs: Lab Results 02/14/21 02/14/21 02/14/21 Range/Units 11:35 11:35 11:35 WBC 9.1 (4.5-11.0) X10^3/uL RBC 4.66 (4.5-5.9) X10^6/uL Hgb 13.8 (13.5-17.5) g/dL Hct 40.7 L (41-53) % MCV 87.5 (80-100) fL MCH 29.7 (26-34) PG MCHC 33.9 (30-36) % RDW 14.5 (11.6-14.8) % Plt Count 192 (150-400) X10^3/uL Neut % (Auto) 75.9 H (50-75) % Lymph % (Auto) 14.4 L (25-40) % [place] % (Auto) 8.4 (3-14) % Eos % (Auto) 0.3 L (2-4) % Baso % (Auto) 1.0 (0-2) % Neut # (Auto) 6900 (9705-8850) /uL Lymph # (Auto) 1300 (5287-7545) /uL [place] # (Auto) 800 (0-900) /uL Eos # (Auto) 0 (0-450) /uL Baso # (Auto) 100 (0-100) /uL PT 24.7 H (10.1-12.7) SECONDS INR 2.1 H (0.9-1.3) APTT 37 H (26.4-36.2) SECONDS Sodium 133 L (137-145) mmol/L Potassium 4.3 (3.4-5.1) mmol/L Chloride 99 (98-107) mmol/L Carbon Dioxide 34 H (22-32) mmol/L BUN 12 (9-20) mg/dL Creatinine 0.69 (0.66-1.25) mg/dL Estimated GFR > 60.0 (>60) mL/min BUN/Creatinine Ratio 17.4 (6-22) Glucose 229 H (80-110) mg/dL Calcium 9.2 (8.4-10.2) mg/dL Magnesium 2.0 (1.6-2.3) mg/dL Total Bilirubin 1.2 (0.2-1.3) mg/dL AST 33 (17-59) IU/L ALT 36 (<50) IU/L Alkaline Phosphatase 53 (38-126) U/L Total Creatine Kinase 51 L (55-170) U/L CK-MB (CK-2) TNP CK-MB (CK-2) Rel Index TNP Troponin I 0.019 (0.01-0.034) ng/mL Total Protein 6.6 (6.3-8.2) g/dL Albumin 3.5 (3.5-5.0) g/dL Globulin 3.1 (1.7-4.1) g/dL Albumin/Globulin Ratio 1.1 (1.0-2.8) Lipase 102 (23-300) U/L Urine Dip Bedside Urine Glucose Negative Bedside Urine Bilirubin - Negative Bedside Urine Ketone - Negative Urine Specific Carlton 1.015 Bedside Urine Occult Blood - Negative Bedside Urine pH 6.0 Bedside Urine Protein - Negative Bedside Urine Urobilinogen - Negative Bedside Urine Nitrite - Negative Bedside Urine Leukocytes - Negative Esterase Imaging Data Chest x-ray: Radiologist's Impression: FINDINGS:? ? Surgical changes and devices:? None.? ? Lungs and pleura:? Patchy mild interstitial prominence can be seen.? No pleural effusions or pneumothorax.? Low lung volumes are noted. This causes a crowded appearance to the lung markings and limits evaluation.? ? Mediastinum:? Mediastinal contours appear normal.? Heart size is normal.? Atherosclerotic calcification of the aortic arch is noted.? ? Bones and chest wall:? No suspicious bony lesions.? Age-appropriate bony degenerative changes are seen. ? Overlying soft tissues appear unremarkable.? ? ? IMPRESSION:? Low lung volumes with mild patchy interstitial prominence.? Differential diagnosis includes artifact, pulmonary edema and atypical infection (including COVID pneumonia). ? If clinically appropriate, a short-term followup chest series (with PA and lateral views) performed in deep inspiration is suggested for further evaluation.? Dictated by: Migel Wise M.D. on 02/14/2021 at 10:42 ? ? US LE: Radiologist's Impression: FINDINGS:? ? Right: The common femoral, femoral and popliteal veins are normally compressible, and free of intraluminal thrombus.? Color and pulse Doppler demonstrate normal phasic intravascular flow.? There is normal augmentation response to distal compression maneuver.? ? Left:? Occlusive deep venous thrombosis can be seen on the left involving the proximal to mid femoral vein through the popliteal vein.? Additional areas of left-sided deep venous thrombosis are not seen. ? Overall scan quality is limited secondary to decreased penetration. ? ? IMPRESSION:? A moderate burden left lower extremity deep venous thrombosis can be seen. ? ? Dictated by: Migel Wise M.D. on 02/14/2021 at 13:34 ? ? MDM Narrative Medical decision making narrative: 75-year-old gentleman with history of recently diagnosed bilateral DVT and pulmonary embolism it would be Hospital was hospitalized and eventually discharged home with Eliquis and is doing quite well. He presents with increasing lower extremity pain over the last number of days and initial concern is for increasing burden of blood clot. He states that he had clots in both legs when he was discharged from the hospital. Today shows a moderate burden of left lower extremity DVT but the right seems to be clear. This does seem to be an improvement. At this point I suspect that the lower extremity pain is is much from global weakness and musculoskeletal issues as well as edema relating from the DVTs. Because he is on Eliquis will give him a brief prescription of narcotic to supplement with Tylenol during the day. I am finding no life-threatening issues today and safe for home discharge. Questions are answered. Discharge Plan Departure Patient Disposition: Home Clinical Impression: DVT (deep venous thrombosis) Qualifiers: DVT location: lower extremity Affected thrombotic vein of extremity: femoral Chronicity: acute Laterality: right Qualified Code(s): I82.411 - Acute embolism and thrombosis of right femoral vein Pulmonary embolism Qualifiers: Pulmonary embolism type: unspecified Chronicity: acute Acute cor pulmonale presence: without acute cor pulmonale Qualified Code(s): I26.99 - Other pulmonary embolism without acute cor pulmonale Lower extremity pain Qualifiers: Laterality: bilateral Qualified Code(s): M79.604 - Pain in right leg Instructions: DI for Low Back Pain Activity Restrictions/Additional Instructions: Thank you for coming in today You seem to be recovering nicely from your recent bilateral lower extremity blood clots and clots to your lungs. Today we did not see any blood clot in your left leg. I suspect that the pain that your experiencing in both legs is related to recent hospitalization, disuse of muscles, as well as the clots that had been present. There is no evidence of any new life-threatening diagnosis today. I believe it is safe to simply cover up some of the pain that you are experiencing as your body continues to heal For mild pain please use Tylenol. For severe pain you can use 1 Percocet as needed. Percocet has narcotic and and will make you constipated. Please make sure you are adding a stool softener as well. I encourage you to follow-up with your primary care physician is symptoms worsen please feel free to return to the ER Prescriptions: New oxycodone-acetaminophen [Percocet] 5-325 mg tablet 1 tab PO Q6H PRN (Reason: pain) Qty: 14 0RF No Action (DME) blood-glucose meter [Contour Next EZ Meter] Kit See Rx Instructions .ROUTE .MEDSUPPLY Qty: 1 0RF Rx Instructions: Use to test blood glucose twice daily (DME) blood sugar diagnostic [Contour Next Test Strips] Strip See Rx Instructions .ROUTE .MEDSUPPLY Qty: 100 5RF Rx Instructions: Use to test blood glucose twice daily metformin 500 mg tablet 500 mg PO BID Qty: 180 3RF amlodipine 5 mg tablet 5 mg PO DAILY Qty: 90 1RF omeprazole 20 mg capsule,delayed release(DR/EC) 20 mg PO DAILY Qty: 90 1RF allopurinol 100 mg tablet 100 mg PO DAILY Qty: 90 1RF lisinopril 40 mg tablet 40 mg PO DAILY Qty: 90 1RF furosemide 20 mg tablet See Rx Instructions .ROUTE .COMPLEX Qty: 90 1RF Dose Instruction: Take 1 tablet by mouth once daily Rx Instructions: Take 1 tablet by mouth once daily meloxicam 15 mg tablet,disintegrating 15 mg PO DAILY Qty: 90 1RF (DME) lancets [BD Ultra Fine Lancets] 33 gauge misc See Rx Instructions .ROUTE .MEDSUPPLY Qty: 100 5RF Rx Instructions: Use to test blood glucose twice daily citalopram [Celexa] 40 mg tablet 40 mg PO DAILY Qty: 90 1RF methocarbamol [Robaxin-750] 750 mg tablet 750 mg PO QID PRN (Reason: muscle spasm) Qty: 20 0RF betamethasone valerate 0.1 % ointment 1 applic TOPICAL DIRECTED 0RF Rx Instructions: APPLY TO PSORIASIS TWICE DAILY FOR 2 WEEKS ON ONE WEEK OFF. USE NEEDED calcipotriene 0.005 % cream 1 applic TOPICAL DIRECTED 0RF Rx Instructions: APPLY TO PSORIASIS ON WEEK OFF OF BETAMETHASONE OINTMENT Referrals: Kervin Canales, [Primary Care Provider] -
== END 2021-02-14 18:04 | disposition home or self-care (01) ==
PROVIDERS: Emergency Provider Emergency Medicine; PCP Family Medicine
DX: I82.412 Acute embolism and thrombosis of left femoral vein (principal); I82.432 Acute embolism and thrombosis of left popliteal vein; I26.99 Other pulmonary embolism without acute cor pulmonale; M79.661 Pain in right lower leg; I10 Essential (primary) hypertension; Z87.891 Personal history of nicotine dependence
CPT/HCPCS: 36415; 71045; 80053; 81003; 82550; 83690; 83735; 84484; 85025; 85610; 85730; 93005; 93010; 93970; 99284

== ENCOUNTER → 2021-03-06 11:19 | Outpatient (CLI) | payer MEDICARE, OTHER, SELFPAY ==
--- NOTE | 2021-03-06 11:21 | DI.RAD.S_ITS ---
PROCEDURE: XR LUMBAR SPINE 2-3V INDICATIONS: Persistent lbp TECHNIQUE: 3 views of the lumbar spine were acquired. COMPARISON: [facility], CT, CT ABDOMEN W CON, 09/08/2020, 10:34. FINDINGS: Bones: For numbering purposes, there are 5 [id number] vertebrae with partial lumbarization of S1. There is stable bony alignment with dextro scoliosis of the lumbar spine centered at L3-4. No acute vertebral body compression fractures. Severe multilevel lumbar spondylosis most pronounced from L3-4 through L5-S1 with severe mid and lower lumbar facet arthropathy. No suspicious bony lesions. Degenerative changes of the bilateral sacroiliac joints. Soft tissues: Overlying bowel gas pattern is normal. No suspicious soft tissue calcifications. Dense atherosclerotic calcifications of the abdominal aorta are noted. IMPRESSION: 1. Lumbar spine without acute fracture or dislocation. 2. Stable appearance of dextroscoliosis of the lumbar spine centered at L3-4 with severe multilevel lumbar spondylosis extending from L3-4 through the lumbosacral junction. Dictated by: Oskar Medina M.D. on 03/06/2021 at 11:49 Approved by: Oskar Medina M.D. on 03/06/2021 at 11:53
== END ==
PROVIDERS: PCP Family Medicine; Referring Provider Family Medicine; Visit Provider Family Medicine
DX: M47.816 Spondylosis without myelopathy or radiculopathy, lumbar region (principal); M47.817 Spondylosis without myelopathy or radiculopathy, lumbosacral region; M47.818 Spondylosis without myelopathy or radiculopathy, sacral and sacrococcygeal region; M41.86 Other forms of scoliosis, lumbar region; M54.9 Dorsalgia, unspecified
CPT/HCPCS: 72100

== ENCOUNTER → 2021-05-11 14:03 | Outpatient (CLI) | payer MEDICARE, OTHER, SELFPAY ==
[2021-05-11 15:17] LABS: Add Manual Diff / Slide Review NO; Basophils Absolute Auto 100 /uL (0-100); Basophils Percent Auto 0.9 % (0-2); Eosinophils Absolute Auto 100 /uL (0-450); Eosinophils Percent Auto 1.9 % (2-4); Hematocrit 48.7 % (41-53); Lymphocytes Absolute Auto 2100 /uL (1100-4500); Lymphocytes Percent Auto 28.7 % (25-40); Mean Corpuscular Hemoglobin 29.4 PG (26-34); Mean Corpuscular Volume 89.2 fL (80-100); Monocytes Absolute Auto 800 /uL (0-900); Monocytes Percent Auto 10.3 % (3-14); Neutrophils Absolute Auto 4300 /uL (1500-7000); Neutrophils Percent Auto 58.2 % (50-75); Platelet Count 207 X10^3/uL (150-400); Red Blood Cell Count 5.45 X10^6/uL (4.5-5.9); Red Cell Distribution Width 15.5 % (11.6-14.8); White Blood Cell Count 7.4 X10^3/uL (4.5-11.0)
[2021-05-11 16:20] LABS: Alanine Aminotransferase 25 IU/L (<50); Albumin 4.4 g/dL (3.5-5.0); Albumin Globulin Ratio 1.6 (1.0-2.8); Alkaline Phosphatase 61 U/L (38-126); Aspartate Aminotransferase 30 IU/L (17-59); Blood Urea Nitrogen 20 mg/dL (9-20); Calcium 9.3 mg/dL (8.4-10.2); Carbon Dioxide 29 mmol/L (22-32); Chloride 101 mmol/L (98-107); Cholesterol 189 mg/dL (140-199); Estimated Glomerular Filt Rate > 60.0 mL/min (>60); Globulin 2.7 g/dL (1.7-4.1); Glucose 158 mg/dL (80-110); HDL Cholesterol 37 mg/dL (40-60); HEMOLYSIS < 15 (0-50); LDL Cholesterol Calculated 94 mg/dL (<100); Potassium 4.2 mmol/L (3.4-5.1); Sodium 138 mmol/L (137-145); Total Protein 7.1 g/dL (6.3-8.2); Triglycerides 290 mg/dL (35-150); Uric Acid 5.8 mg/dL (3.5-8.5)
== END ==
PROVIDERS: PCP Family Medicine; Referring Provider Family Medicine; Visit Provider Family Medicine
DX: E11.9 Type 2 diabetes mellitus without complications (principal); I10 Essential (primary) hypertension; F32.9 Major depressive disorder, single episode, unspecified; I82.409 Acute embolism and thrombosis of unspecified deep veins of unspecified lower extremity; M10.9 Gout, unspecified
CPT/HCPCS: 36415; 80053; 80061; 83036; 84550; 85025

== ENCOUNTER 2021-06-28 19:07 | Emergency (ER) | payer MEDICARE, OTHER, SELFPAY ==
[2021-06-28] VITALS (14 sets, daily range): BP systolic 129–176; BP diastolic 67–84; PULSE 60–79; RESP 13–24; TEMP 36.7; O2SAT 93–96; BMI 36.3
--- NOTE | 2021-06-28 19:43 | ED.ABDPAIN ---
HPI - Abdominal Pain General Chief Complaint: Abdominal Pain Stated Complaint: abd pain from ulcer Time Seen by Provider: 06/28/21 19:26 Source: patient and family Mode of arrival: Ambulatory History of Present Illness HPI narrative: The patient has a history of ulcers. He has been on omeprazole for more than 10 years. His pain flared up about 4 days ago. He is having difficulty eating. Pain increases when he eats. Pain is epigastric in nature and does not radiate. He has no specific food sensitivity. He has no history of gallbladder disease. He has no history of abdominal or pelvic surgeries. Pain is decreased today, but he still has epigastric discomfort. He has no headache, no sore throat, and no fever. He denies chest pain, cough or dyspnea. With the abdominal discomfort, he has no nausea vomiting. Bowel movements are normal, he has no hematochezia. He has no back pain, no dysuria or hematuria. Related Data Home Medications Medication Instructions Recorded Confirmed betamethasone valerate 0.1 % 1 applic TOPICAL DIRECTED 12/30/18 05/11/21 topical ointment calcipotriene 0.005 % topical cream 1 applic TOPICAL DIRECTED 12/30/18 05/11/21 metoprolol succinate 25 mg 25 mg PO tab 03/06/21 05/11/21 tablet,extended release 24 hr Previous Rx's Medication Instructions Recorded meloxicam 15 mg disintegrating 15 mg PO DAILY #90 tab 07/21/19 tablet lancets 33 gauge (BD Ultra Fine #100 each 08/11/19 Lancets) blood-glucose meter (Contour Next #1 each 08/14/19 EZ Meter) methocarbamol 750 mg tablet 750 mg PO QID PRN #20 tab 06/17/20 (Robaxin-750) amlodipine 5 mg tablet 5 mg PO DAILY #90 tab 08/16/20 omeprazole 20 mg capsule,delayed 20 mg PO DAILY #90 cap 08/16/20 release duloxetine 30 mg capsule,delayed 30 mg PO DAILY #7 cap 03/06/21 release duloxetine 60 mg capsule,delayed 60 mg PO DAILY #90 cap 03/06/21 release blood sugar diagnostic (Contour #100 ea 03/30/21 Next Test Strips) furosemide 20 mg tablet See Rx Instructions .ROUTE 04/24/21 .COMPLEX #90 tab apixaban 5 mg tablet (Eliquis) 5 mg PO BID #180 tab 05/11/21 allopurinol 100 mg tablet See Rx Instructions .ROUTE 05/16/21 .COMPLEX #90 tab lisinopril 40 mg tablet See Rx Instructions .ROUTE 05/16/21 .COMPLEX #90 tab metformin 500 mg tablet See Rx Instructions .ROUTE 05/16/21 .COMPLEX #180 tab Allergies Allergy/AdvReac Type Severity Reaction Status Date / Time No Known Drug Allergies Allergy Verified 06/28/21 19:24 Review of Systems Constitutional Constitutional: Denies body ache(s), Denies chills, Denies fatigue, Denies fever(s) and Denies headache(s) ENT Ears, Nose, Mouth, and Throat: Denies dizziness, Denies headache(s), Denies sinus pain, Denies sinus pressure and Denies sore throat Cardiovascular Cardiovascular: Denies chest pain, Denies syncope, Denies rapid heart rate, Denies edema and Denies dyspnea Respiratory Respiratory: Denies cough and Denies dyspnea Gastrointestinal Gastrointestinal: Reports as per HPI Genitourinary Genitourinary: Denies dysuria and Denies genital pain Musculoskeletal Musculoskeletal: Denies arthralgias and Denies back pain Integumentary/Breasts Skin/Breast: Denies rash Neurologic Neurologic: Denies confusion, Denies dizziness, Denies syncope and Denies headache(s) Psychiatric Psychiatric: Denies confusion Endocrine Endocrine: Denies fatigue Hematologic/Lymphatic On Anticoagulants: No Patient History Medical History Ankle fracture Ankle pain Back pain Carpal tunnel syndrome Chicken pox (~1949) Colon polyps (~2004) Depression (~1979) DVT (deep venous thrombosis) Fatigue Gastric ulcer (~2007) GERD (gastroesophageal reflux disease) Gout Hypertension 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 Low testosterone (~2007) Lumbar stenosis with neurogenic claudication Measles (~1949) Mumps (~1949) Obesity (BMI 30-39.9) Obstructive sleep apnea syndrome Peptic ulcer disease Plantar warts Polyarthralgia Psoriasis (~2008) Steatosis Type 2 diabetes mellitus Vision disorder Surgical History Anesthesia History of knee replacement History of knee replacement (~2004) History of shoulder surgery Family History Mother Cancer Father CAD (coronary artery disease) Stroke Grandmother Cancer Social History marital status: lives independently: Yes caregiver/support person: No Smoking Status: Former smoker Tobacco: How many years used: 20 alcohol intake: current (Less than 1 a week ) Smoking Status: Former smoker alcohol intake frequency: 0-2 drinks per day Substance Use Type: does not use Exam Initial Vital Signs Initial Vital Signs: Vital Signs Temperature 98.1 F 06/28/21 19:15 Pulse Rate 79 06/28/21 19:15 Respiratory Rate 16 06/28/21 19:15 Blood Pressure 176/82 H 06/28/21 19:15 Pulse Oximetry 94 06/28/21 19:15 Const General: cooperative, comfortable and No acute distress HENMT Head: normocephalic and atraumatic Mouth: oral mucosae normal Eyes Conjunctivae: conjunctivae normal Neck Neck: normal visual inspection Chest Chest: normal inspection of the chest Resp Auscultation: clear to auscultation bilaterally Cardio Rate: regular rate Rhythm: abnormal rhythm and other GI Inspection: normal to inspection, no edema, non-distended and obesity Palpation: soft and No tender Percussion: normal to percussion Auscultation: normal bowel sounds Back/Spine/Pelvis Back: normal to inspection and No back tenderness Skin General: no rashes or lesions noted (No jaundice) Neuro General: patient alert, no meningeal signs and no focal motor deficits Extrem General: normal to inspection, no pedal edema and no calf tenderness Psych Mental Status: mental status grossly normal Course Orders Ordered: ED Orders 06/28/21 19:30 Complete Blood Count AUTO DIFF Stat Comprehensive Metabolic Panel Stat Lipase Stat Sodium Chloride (Normal Saline 0.9%) 1,000 mls @ 150 mls/hr IV CONT RAMA Last Admin: 06/28/21 19:50 Dose: 150 mls/hr Documented by: [email or web address] Discontinued Medications Pantoprazole Sodium (Pantoprazole 40 Mg Vial) 40 mg IV NOW ONE Stop: 06/28/21 19:43 Last Admin: 06/28/21 19:50 Dose: 40 mg Documented by: [email or web address] Vital Signs Vital signs: Vital Signs - 8 hr 06/28/21 19:15 06/28/21 19:24 06/28/21 19:30 Temperature 98.1 F Pulse Rate 79 78 72 Respiratory Rate 16 19 Blood Pressure 176/82 H 168/80 H Pulse Oximetry 94 95 96 06/28/21 20:00 06/28/21 20:01 06/28/21 20:30 Temperature Pulse Rate 70 72 61 Respiratory Rate 23 21 17 Blood Pressure 140/67 Pulse Oximetry 96 95 94 06/28/21 20:31 06/28/21 21:00 06/28/21 21:01 Temperature Pulse Rate 61 62 62 Respiratory Rate 17 13 17 Blood Pressure 159/78 H 147/71 H Pulse Oximetry 94 95 93 06/28/21 21:30 06/28/21 22:00 Temperature Pulse Rate 63 64 Respiratory Rate 15 16 Blood Pressure 144/70 H 137/84 Pulse Oximetry 94 94 MDM - Abdominal Pain Lab Data Result diagrams: 06/28/21 19:30 06/28/21 19:30 Labs: Lab Results 06/28/21 06/28/21 Range/Units 19:30 19:30 WBC 10.5 (4.5-11.0) X10^3/uL RBC 5.74 (4.5-5.9) X10^6/uL Hgb 17.2 (13.5-17.5) g/dL Hct 50.5 (41-53) % MCV 88.0 (80-100) fL MCH 30.0 (26-34) PG MCHC 34.1 (30-36) % RDW 14.4 (11.6-14.8) % Plt Count 275 (150-400) X10^3/uL Neut % (Auto) 66.9 (50-75) % Lymph % (Auto) 20.3 L (25-40) % [place] % (Auto) 10.2 (3-14) % Eos % (Auto) 1.6 L (2-4) % Baso % (Auto) 1.0 (0-2) % Neut # (Auto) 7100 H (4928-4195) /uL Lymph # (Auto) 2100 (3365-6312) /uL [place] # (Auto) 1100 H (0-900) /uL Eos # (Auto) 200 (0-450) /uL Baso # (Auto) 100 (0-100) /uL Sodium 135 L (137-145) mmol/L Potassium 4.3 (3.4-5.1) mmol/L Chloride 96 L (98-107) mmol/L Carbon Dioxide 30 (22-32) mmol/L BUN 16 (9-20) mg/dL Creatinine 0.86 (0.66-1.25) mg/dL Estimated GFR > 60 (>60) mL/min BUN/Creatinine Ratio 18.6 (6-22) Glucose 189 H (80-110) mg/dL Calcium 9.4 (8.4-10.2) mg/dL Total Bilirubin 1.9 H (0.2-1.3) mg/dL AST 32 (17-59) IU/L ALT 34 (<50) IU/L Alkaline Phosphatase 67 (38-126) U/L Total Protein 7.6 (6.3-8.2) g/dL Albumin 4.4 (3.5-5.0) g/dL Globulin 3.2 (1.7-4.1) g/dL Albumin/Globulin Ratio 1.4 (1.0-2.8) Lipase 61 (23-300) U/L Discharge Plan Departure Patient Disposition: Home Clinical Impression: Peptic ulcer disease Instructions: DI for Dyspepsia Activity Restrictions/Additional Instructions: Continue your current medications. Focus on a bland diet, avoid late night eating, eat small meals only, and drink plenty of water. Walk regularly. Follow-up with your doctor in 2 weeks for recheck, return here if necessary. Prescriptions: No Action (DME) blood-glucose meter [Contour Next EZ Meter] Kit See Rx Instructions .ROUTE .MEDTIBBIE Qty: 1 0RF Rx Instructions: Use to test blood glucose twice daily amlodipine 5 mg tablet 5 mg PO DAILY Qty: 90 1RF omeprazole 20 mg capsule,delayed release(DR/EC) 20 mg PO DAILY Qty: 90 1RF (DME) Contour Next Test Strips Strip See Rx Instructions .ROUTE .COMPLEX Qty: 100 6RF Dose Instruction: USE 1 STRIP TO CHECK GLUCOSE TWICE DAILY Rx Instructions: USE 1 STRIP TO CHECK GLUCOSE ONCE DAILY furosemide 20 mg tablet See Rx Instructions .ROUTE .COMPLEX Qty: 90 0RF Dose Instruction: Take 1 tablet by mouth once daily Rx Instructions: Take 1 tablet by mouth once daily lisinopril 40 mg tablet See Rx Instructions .ROUTE .COMPLEX Qty: 90 0RF Dose Instruction: Take 1 tablet by mouth once daily Rx Instructions: Take 1 tablet by mouth once daily allopurinol 100 mg tablet See Rx Instructions .ROUTE .COMPLEX Qty: 90 0RF Dose Instruction: Take 1 tablet by mouth once daily Rx Instructions: Take 1 tablet by mouth once daily metformin 500 mg tablet See Rx Instructions .ROUTE .COMPLEX Qty: 180 0RF Dose Instruction: Take 1 tablet by mouth twice daily Rx Instructions: Take 1 tablet by mouth twice daily meloxicam 15 mg tablet,disintegrating 15 mg PO DAILY Qty: 90 1RF (DME) lancets [BD Ultra Fine Lancets] 33 gauge misc See Rx Instructions .ROUTE .MEDSUPPLY Qty: 100 5RF Rx Instructions: Use to test blood glucose twice daily metoprolol succinate 25 mg tablet extended release 24 hr 25 mg PO 0RF Label Comments: TAKE 1 TABLET BY MOUTH ONCE DAILY duloxetine 30 mg capsule,delayed release(DR/EC) 30 mg PO DAILY Qty: 7 0RF Rx Instructions: this dose first then advance to 60mg duloxetine 60 mg capsule,delayed release(DR/EC) 60 mg PO DAILY Qty: 90 1RF Eliquis 5 mg tablet 5 mg PO BID Qty: 180 1RF methocarbamol [Robaxin-750] 750 mg tablet 750 mg PO QID PRN (Reason: muscle spasm) Qty: 20 0RF betamethasone valerate 0.1 % ointment 1 applic TOPICAL DIRECTED 0RF Rx Instructions: APPLY TO PSORIASIS TWICE DAILY FOR 2 WEEKS ON ONE WEEK OFF. USE NEEDED calcipotriene 0.005 % cream 1 applic TOPICAL DIRECTED 0RF Rx Instructions: APPLY TO PSORIASIS ON WEEK OFF OF BETAMETHASONE OINTMENT Referrals: Kervin Canales, [Primary Care Provider] -
[2021-06-28] MEDS: SODIUM CHLORIDE 0.9% 1,000 ML 150 ML IV (19:50)
[2021-06-28] MEDS: PANTOPRAZOLE 40 MG VIAL IV (19:50)
[2021-06-28 19:52] LABS: Add Manual Diff / Slide Review NO; Basophils Absolute Auto 100 /uL (0-100); Eosinophils Absolute Auto 200 /uL (0-450); Eosinophils Percent Auto 1.6 % (2-4); Hematocrit 50.5 % (41-53); Hemoglobin 17.2 g/dL (13.5-17.5); Lymphocytes Absolute Auto 2100 /uL (1100-4500); Lymphocytes Percent Auto 20.3 % (25-40); Mean Corpuscular HGB Conc 34.1 % (30-36); Monocytes Absolute Auto 1100 /uL (0-900); Monocytes Percent Auto 10.2 % (3-14); Neutrophils Absolute Auto 7100 /uL (1500-7000); Neutrophils Percent Auto 66.9 % (50-75); Platelet Count 275 X10^3/uL (150-400); Red Blood Cell Count 5.74 X10^6/uL (4.5-5.9); Red Cell Distribution Width 14.4 % (11.6-14.8); White Blood Cell Count 10.5 X10^3/uL (4.5-11.0)
[2021-06-28 20:00] LABS: Alanine Aminotransferase 34 IU/L (<50); Albumin 4.4 g/dL (3.5-5.0); Albumin Globulin Ratio 1.4 (1.0-2.8); Alkaline Phosphatase 67 U/L (38-126); Aspartate Aminotransferase 32 IU/L (17-59); BUN Creatinine Ratio 18.6 (6-22); Bilirubin Total 1.9 mg/dL (0.2-1.3); Blood Urea Nitrogen 16 mg/dL (9-20); Calcium 9.4 mg/dL (8.4-10.2); Carbon Dioxide 30 mmol/L (22-32); Chloride 96 mmol/L (98-107); Estimated Glomerular Filt Rate > 60 mL/min (>60); Globulin 3.2 g/dL (1.7-4.1); Glucose 189 mg/dL (80-110); HEMOLYSIS < 15 (0-50); Lipase 61 U/L (23-300); Potassium 4.3 mmol/L (3.4-5.1); Sodium 135 mmol/L (137-145); Total Protein 7.6 g/dL (6.3-8.2)
== END 2021-06-28 22:55 | disposition home or self-care (01) ==
PROVIDERS: Emergency Provider Emergency Medicine; PCP Family Medicine
DX: K27.9 Peptic ulcer, site unspecified, unspecified as acute or chronic, without hemorrhage or perforation (principal)
CPT/HCPCS: 36415; 80053; 83690; 85025; 96374; 99284; C9113

== ENCOUNTER → 2022-01-19 14:59 | Outpatient (CLI) | payer MEDICARE, OTHER, SELFPAY ==
[2022-01-19 15:47] LABS: Hemoglobin A1C% w Est Avg Glu 7.2 % (4.0-6.0)
[2022-01-19 17:18] LABS: Alanine Aminotransferase 27 IU/L (<50); Albumin 4.2 g/dL (3.5-5.0); Albumin Globulin Ratio 1.4 (1.0-2.8); Alkaline Phosphatase 72 U/L (38-126); Aspartate Aminotransferase 32 IU/L (17-59); BUN Creatinine Ratio 16.2 (6-22); Bilirubin Total 0.8 mg/dL (0.2-1.3); Blood Urea Nitrogen 12 mg/dL (9-20); Carbon Dioxide 31 mmol/L (22-32); Chloride 97 mmol/L (98-107); Estimated Glomerular Filt Rate > 60 mL/min (>60); Globulin 2.9 g/dL (1.7-4.1); Glucose 140 mg/dL (80-110); HEMOLYSIS < 15 (0-50); Potassium 4.1 mmol/L (3.4-5.1); Sodium 138 mmol/L (137-145); Total Protein 7.1 g/dL (6.3-8.2)
== END ==
PROVIDERS: PCP Family Medicine; Referring Provider Family Medicine; Visit Provider Family Medicine
DX: E11.9 Type 2 diabetes mellitus without complications (principal); I10 Essential (primary) hypertension; M10.9 Gout, unspecified
CPT/HCPCS: 36415; 80053; 83036

== ENCOUNTER 2022-04-29 15:25 | Emergency (ER) | payer MEDICARE, OTHER, SELFPAY ==
[2022-04-29] VITALS (14 sets, daily range): BP systolic 178–208; BP diastolic 99–116; PULSE 101–122; RESP 19–30; TEMP 36.8; O2SAT 92–98; BMI 37.1
--- NOTE | 2022-04-29 15:39 | DI.CT.S_ITS ---
PROCEDURE: CT CHEST ABD PEL W CON INDICATIONS: trauma TECHNIQUE: After the administration of intravenous contrast, 5 mm thick sections acquired from the lung apices to the symphysis. 2.5 mm thick coronal and sagittal reformats were acquired. Additional 7 mm thick coronal maximum intensity projection (MIP) reformats acquired through the lungs. Optional 10-minute delayed imaging may be performed from the kidneys to the bladder. For radiation dose reduction, the following was used: automated exposure control, adjustment of mA and/or kV according to patient size. COMPARISON: [facility], CT, CT ABDOMEN W CON, 09/08/2020, 10:34. FINDINGS: Image quality: Excellent. CHEST: Lungs: No pulmonary contusions or lacerations. No acute airspace opacities. No pneumothorax or hemothorax. Bibasilar traction bronchiectasis. Mediastinum: No mediastinal hematomas. Heart size is normal. No pericardial effusion. Thoracic aorta and pulmonary arteries demonstrate normal size and enhancement. No mediastinal or hilar adenopathy. Esophagus is normal in caliber. No hiatal hernia. Chest wall: No rib fractures. No subcutaneous emphysema. No axillary or supraclavicular adenopathy. Thyroid gland normal. ABDOMEN: Solid organs: Liver is normal in size, and demonstrates hepatic steatosis without lacerations. Gallbladder is unremarkable. Biliary system is non-dilated. Pancreas enhances normally, without transection. Spleen is normal in size and enhancement, without lacerations. No adrenal hematomas. Right adrenal nodule of indeterminate density similar to comparison CT. Both kidneys enhance normally, without hydronephrosis or lacerations. Peritoneum and bowel: No free fluid or air. Unenhanced bowel loops demonstrate normal wall thickness and caliber. Nodes and vessels: No retroperitoneal or mesenteric adenopathy. Aorta and inferior vena cava are normal in size and enhancement. Miscellaneous: No ventral hernias. PELVIS: Genitourinary: Bladder wall thickness is normal. Miscellaneous: No inguinal hernias or adenopathy. Bones: Pelvic ring and hip joints appear intact. Compression fracture of L1 with vacuum disc phenomenon suggesting chronic etiology. Lateral left 6th and 7th rib fractures. IMPRESSION: 1. Left lateral 6th and 7th rib fractures. 2. No acute findings with the abdomen and pelvis. 3. Additional chronic findings as above. Dictated by: Wilfredo Yeboah M.D. on 04/29/2022 at 16:11 Approved by: Wilfredo Yeboah M.D. on 04/29/2022 at 16:19
--- NOTE | 2022-04-29 15:40 | ED.FALL ---
HPI - Fall General Chief Complaint: Fall Stated Complaint: fell 2 days ago/rib pain Time Seen by Provider: 04/29/22 15:33 Source: patient Mode of arrival: Ambulatory History of Present Illness HPI Narrative: Gentleman comes to the ER today because of left chest pain. He fell when he tripped Saturday evening. He is had left chest pain since then. Today he comes in because the pain is just not getting any better. He is breathless with exertion but this has been the case for some time and he has been under the care of a physician for this reason. He has a scheduled stress test tomorrow to help elucidate the cause of his breathlessness. He says his breathlessness is no different today. No fever. No abdominal pain. No extremity discomfort. No headache head trauma or neck ache. Related Data Home Medications Medication Instructions Recorded Confirmed betamethasone valerate 0.1 % 1 applic topical DIRECTED 12/30/18 04/09/22 topical ointment calcipotriene 0.005 % topical cream 1 applic topical DIRECTED 12/30/18 04/09/22 metoprolol succinate 25 mg 25 mg PO 03/06/21 04/09/22 tablet,extended release 24 hr Previous Rx's Medication Instructions Recorded meloxicam 15 mg disintegrating 15 mg PO DAILY #90 tabs 07/21/19 tablet methocarbamol 750 mg tablet 750 mg PO QID PRN muscle spasm #20 06/17/20 (Robaxin-750) tabs amlodipine 5 mg tablet 5 mg PO DAILY #90 tabs 08/16/20 omeprazole 20 mg capsule,delayed 20 mg PO DAILY #90 caps 08/16/20 release duloxetine 30 mg capsule,delayed 30 mg PO DAILY #7 caps 03/06/21 release apixaban 5 mg tablet (Eliquis) 5 mg PO BID #180 tabs 05/11/21 allopurinol 100 mg tablet See Rx Instructions .Route 11/27/21 .COMPLEX #90 tabs metformin 500 mg tablet See Rx Instructions .Route 12/12/21 .COMPLEX #180 tabs duloxetine 60 mg capsule,delayed See Rx Instructions .Route 02/27/22 release .COMPLEX #90 ea furosemide 20 mg tablet See Rx Instructions .Route 02/27/22 .COMPLEX #90 tabs lisinopril 40 mg tablet See Rx Instructions .Route 02/27/22 .COMPLEX #90 tabs blood sugar diagnostic (Contour #100 ea 04/16/22 Next Test Strips) blood-glucose meter (Contour Next #1 ea 04/16/22 EZ Meter kit) lancets 33 gauge (BD Ultra Fine #100 ea 04/16/22 Lancets) Allergies Allergy/AdvReac Type Severity Reaction Status Date / Time No Known Drug Allergies Allergy Verified 04/09/22 08:07 Patient History Medical History Ankle fracture Ankle pain Back pain Carpal tunnel syndrome Chicken pox (~1949) Colon polyps (~2004) Compression fracture Congestive heart failure Depression (~1979) DVT (deep venous thrombosis) Fatigue Gastric ulcer (~2007) GERD (gastroesophageal reflux disease) Gout Hypertension 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 Low testosterone (~2007) Lumbar stenosis with neurogenic claudication Measles (~1949) Mumps (~1949) Obesity (BMI 30-39.9) Obstructive sleep apnea syndrome Peptic ulcer disease Plantar warts Polyarthralgia Psoriasis (~2008) Steatosis Type 2 diabetes mellitus Vision disorder Surgical History Anesthesia History of knee replacement History of knee replacement (~2004) History of shoulder surgery Family History Mother Cancer Father CAD (coronary artery disease) Stroke Grandmother Cancer Social History marital status: lives independently: Yes caregiver/support person: No Smoking Status: Former smoker Tobacco: How many years used: 20 alcohol intake: current (Less than 1 a week ) Smoking Status: Former smoker alcohol intake frequency: 0-2 drinks per day Substance Use Type: does not use Exam Narrative Exam Narrative: GENERAL: Alert, cooperative and in no distress. HEAD: Atraumatic. Normocephalic. EYES: Sclera are clear without icterus. Extraocular movements are full. ENT: No rhinorrhea. Oropharynx is moist. Mouth exam is benign. NECK: Supple. Full range of motion. CARDIOVASCULAR: Normal rate and rhythm without murmur gallop or rub. CHEST: DISCRETE TENDERNESS ALONG THE LEFT ANTERIOR AXILLARY LINE ON THE CHEST RESPIRATORY: Clear to auscultation. Breath sounds equal bilaterally. No wheezes, rales, or rhonchi. GASTROINTESTINAL: Abdomen soft, non-tender, nondistended. EXTREMITIES: No edema, full range of motion. No obvious trauma. BACK: Normal inspection, no CVA tenderness. NEURO: Nonfocal examination, normal speech, normal gait. SKIN: No rash or erythema of visible areas PSYCH: Normally oriented. Normal range of affect. Appropriate behavior Initial Vital Signs Initial Vital Signs: Vital Signs Temperature 98.3 F 04/29/22 15:28 Pulse Rate 116 H 04/29/22 15:28 Respiratory Rate 22 04/29/22 15:28 Blood Pressure 198/106 H 04/29/22 15:28 Pulse Oximetry 97 04/29/22 15:28 Oxygen Delivery Method Room Air 04/29/22 15:28 Course Course Course Narrative: Gentleman with a ground level fall. He is older and obese with tachypnea and tachycardia. His tachypnea and tachycardia hopefully are just related to whatever is been chronically bothering him and not directly related to the trauma but we shall see. Will order imaging of the chest abdomen and pelvis given the trauma and CBC CMP and an EKG. ECG shows sinus tachycardia. CBC and CMP are largely unremarkable. Chest CT abdomen and pelvis shows only 2 contiguous rib fractures without pneumothorax or other acute injury identified in the chest. The patient is tachycardic and hypertensive while he is here but he is comfortable and says that his breathing is baseline other than the rib pain. Says this has been a problem for some time and he is in the midst of a workup with his outpatient provider to try to elucidate the cause of his dyspnea. Appears to have some degree of bronchiectasis on the CT. Since 48 hours have already elapsed since the injury I do not think hospitalization is warranted. The patient would much prefer to go home. I do not think opioid analgesics are appropriate given his respiratory status. I attribute his mild tachycardia and hypertension to the acute pain of the rib fractures. I talked to him about hospitalization which he declines. Will treat with oral analgesics and careful return precautions were given. Orders Ordered: ED Orders 04/29/22 15:39 CT chest abd pel w con Stat 04/29/22 15:46 EKG-12 Lead Stat 04/29/22 15:54 CMP [Comprehensive Metabolic Panel] Stat 04/29/22 16:05 CBC Auto Diff [Complete Blood Count AUTO DIFF] Stat Vital Signs Vital signs: Vital Signs - 8 hr 04/29/22 15:28 04/29/22 15:40 04/29/22 15:50 Temperature 98.3 F Pulse Rate 116 H 122 H Respiratory Rate 22 23 Blood Pressure 198/106 H 200/99 H Pulse Oximetry 97 97 Oxygen Delivery Method Room Air 04/29/22 15:50 04/29/22 16:00 04/29/22 16:00 Temperature Pulse Rate 118 H 116 H Respiratory Rate 30 H 22 Blood Pressure 187/102 H Pulse Oximetry 97 96 Oxygen Delivery Method 04/29/22 16:10 04/29/22 16:10 04/29/22 16:20 Temperature Pulse Rate 111 H Respiratory Rate 22 Blood Pressure 178/99 H 208/106 H Pulse Oximetry 95 Oxygen Delivery Method 04/29/22 16:20 04/29/22 16:30 04/29/22 17:05 Temperature Pulse Rate 110 H 112 H 115 H Respiratory Rate 22 23 Blood Pressure Pulse Oximetry 95 95 98 Oxygen Delivery Method 04/29/22 17:06 04/29/22 17:06 04/29/22 17:15 Temperature Pulse Rate 113 H Respiratory Rate 22 Blood Pressure 182/116 H 186/104 H Pulse Oximetry 97 Oxygen Delivery Method 04/29/22 17:15 04/29/22 17:30 04/29/22 17:30 Temperature Pulse Rate 106 H 105 H Respiratory Rate 20 Blood Pressure 197/106 H Pulse Oximetry 94 95 Oxygen Delivery Method MDM - Fall Lab Data 04/29/22 16:05 04/29/22 15:54 Labs: Lab Results 04/29/22 04/29/22 Range/Units 15:54 16:05 WBC 7.8 (4.5-11.0) X10^3/uL RBC 5.31 (4.5-5.9) X10^6/uL Hgb 15.8 (13.5-17.5) g/dL Hct 47.6 (41-53) % MCV 89.6 (80-100) fL MCH 29.7 (26-34) PG MCHC 33.1 (30-36) % RDW 17.0 H (11.6-14.8) % Plt Count 212 (150-400) X10^3/uL Neut % (Auto) 68.3 (50-75) % Lymph % (Auto) 20.7 L (25-40) % [place] % (Auto) 7.6 (3-14) % Eos % (Auto) 2.4 (2-4) % Baso % (Auto) 1.0 (0-2) % Neut # (Auto) 5300 (5689-7899) /uL Lymph # (Auto) 1600 (3823-7889) /uL [place] # (Auto) 600 (0-900) /uL Eos # (Auto) 200 (0-450) /uL Baso # (Auto) 100 (0-100) /uL Sodium 139 (137-145) mmol/L Potassium 4.5 (3.4-5.1) mmol/L Chloride 99 (98-107) mmol/L Carbon Dioxide 34 H (22-32) mmol/L BUN 13 (9-20) mg/dL Creatinine 0.69 (0.66-1.25) mg/dL Estimated GFR > 60 (>60) mL/min BUN/Creatinine Ratio 18.8 (6-22) Glucose 241 H (80-110) mg/dL Calcium 9.3 (8.4-10.2) mg/dL Total Bilirubin 1.3 (0.2-1.3) mg/dL AST 36 (17-59) IU/L ALT 29 (<50) IU/L Alkaline Phosphatase 73 (38-126) U/L Total Protein 7.1 (6.3-8.2) g/dL Albumin 4.0 (3.5-5.0) g/dL Globulin 3.1 (1.7-4.1) g/dL Albumin/Globulin Ratio 1.3 (1.0-2.8) ECG Data Interpretation: EKG obtained at 3:46 p.m. shows sinus tachycardia at 1:16 a.m.. QTC is 483. Nonspecific ST T wave abnormalities. Discharge Plan Departure Patient Disposition: Home Clinical Impression: Fracture, ribs, Hypertension, Tachycardia Instructions: How to Prevent Falls Activity Restrictions/Additional Instructions: Fortunately only 2 rib fractures are identified on CT imaging. No other serious injury is identified. We talked about bringing him into the hospital for observation but since 2 days of already gone by with no evidence of dangerous injury or decompensation I think a home disposition is reasonable to consider. You have opted for this and declined hospitalization. For pain management I recommend Tylenol 1000 mg taken together with ibuprofen 600 mg every 6 hours for the next few days. Once an hour make sure you take a full title breath and exhale forcefully through pursed lips to force expansion of the lungs and prevent pneumonia. Follow-up right away for worsening chest pain, shortness of breath, fever, cough, fainting or any other severe symptoms. Otherwise, plan on following up with your doctor later this week. I do not believe you will be fit to do a treadmill stress test tomorrow. Prescriptions: No Action amlodipine 5 mg tablet 5 mg PO DAILY Qty: 90 1RF omeprazole 20 mg capsule,delayed release(DR/EC) 20 mg PO DAILY Qty: 90 1RF allopurinol 100 mg tablet See Rx Instructions .ROUTE .COMPLEX Qty: 90 3RF Dose Instruction: Take 1 tablet by mouth once daily Rx Instructions: Take 1 tablet by mouth once daily metformin 500 mg tablet See Rx Instructions .ROUTE .COMPLEX Qty: 180 0RF Dose Instruction: Take 1 tablet by mouth twice daily Rx Instructions: Take 1 tablet by mouth twice daily lisinopril 40 mg tablet See Rx Instructions .ROUTE .COMPLEX Qty: 90 0RF Dose Instruction: Take 1 tablet by mouth once daily Rx Instructions: Take 1 tablet by mouth once daily furosemide 20 mg tablet See Rx Instructions .ROUTE .COMPLEX Qty: 90 0RF Dose Instruction: Take 1 tablet by mouth once daily Rx Instructions: Take 1 tablet by mouth once daily duloxetine 60 mg capsule,delayed release(DR/EC) See Rx Instructions .ROUTE .COMPLEX Qty: 90 1RF Dose Instruction: Take 1 capsule by mouth once daily Rx Instructions: Take 1 capsule by mouth once daily meloxicam 15 mg tablet,disintegrating 15 mg PO DAILY Qty: 90 1RF metoprolol succinate 25 mg tablet extended release 24 hr 25 mg PO Patient Comments: TAKE 1 TABLET BY MOUTH ONCE DAILY duloxetine 30 mg capsule,delayed release(DR/EC) 30 mg PO DAILY Qty: 7 0RF Rx Instructions: this dose first then advance to 60mg Eliquis 5 mg tablet 5 mg PO BID Qty: 180 1RF (DME) blood-glucose meter [Contour Next EZ Meter] Kit See Rx Instructions .ROUTE .MEDSUPPLY Qty: 1 0RF Rx Instructions: Use to test blood glucose twice daily (DME) Contour Next Test Strips Strip See Rx Instructions .ROUTE .COMPLEX Qty: 100 6RF Dose Instruction: USE 1 STRIP TO CHECK GLUCOSE TWICE DAILY Rx Instructions: USE 1 STRIP TO CHECK GLUCOSE ONCE DAILY (DME) lancets [BD Ultra Fine Lancets] 33 gauge misc See Rx Instructions .ROUTE .MEDSUPPLY Qty: 100 5RF Rx Instructions: Use to test blood glucose twice daily methocarbamol [Robaxin-750] 750 mg tablet 750 mg PO QID PRN (Reason: muscle spasm) Qty: 20 0RF betamethasone valerate 0.1 % ointment 1 applic TOPICAL DIRECTED Rx Instructions: APPLY TO PSORIASIS TWICE DAILY FOR 2 WEEKS ON ONE WEEK OFF. USE NEEDED calcipotriene 0.005 % cream 1 applic TOPICAL DIRECTED Rx Instructions: APPLY TO PSORIASIS ON WEEK OFF OF BETAMETHASONE OINTMENT Referrals: Kervin Canales, [Primary Care Provider] - Stand Alone Forms: Patient Portal/API
--- NOTE | 2022-04-29 15:43 | PC.NURSE ---
Pt presents after a slip/trip fall with left sided rib pain. Pt is sweaty to touch and SOB. BP is 210/103. Pt denies chest pain other than in the ribs. Provider at bedside upon initial assessment.
[2022-04-29 16:20] LABS: Add Manual Diff / Slide Review NO; Basophils Absolute Auto 100 /uL (0-100); Eosinophils Absolute Auto 200 /uL (0-450); Eosinophils Percent Auto 2.4 % (2-4); Hematocrit 47.6 % (41-53); Hemoglobin 15.8 g/dL (13.5-17.5); Lymphocytes Absolute Auto 1600 /uL (1100-4500); Lymphocytes Percent Auto 20.7 % (25-40); Mean Corpuscular HGB Conc 33.1 % (30-36); Mean Corpuscular Hemoglobin 29.7 PG (26-34); Mean Corpuscular Volume 89.6 fL (80-100); Monocytes Absolute Auto 600 /uL (0-900); Monocytes Percent Auto 7.6 % (3-14); Neutrophils Absolute Auto 5300 /uL (1500-7000); Neutrophils Percent Auto 68.3 % (50-75); Platelet Count 212 X10^3/uL (150-400); Red Blood Cell Count 5.31 X10^6/uL (4.5-5.9); White Blood Cell Count 7.8 X10^3/uL (4.5-11.0)
[2022-04-29 16:30] LABS: Alanine Aminotransferase 29 IU/L (<50); Albumin Globulin Ratio 1.3 (1.0-2.8); Alkaline Phosphatase 73 U/L (38-126); Aspartate Aminotransferase 36 IU/L (17-59); BUN Creatinine Ratio 18.8 (6-22); Bilirubin Total 1.3 mg/dL (0.2-1.3); Blood Urea Nitrogen 13 mg/dL (9-20); Calcium 9.3 mg/dL (8.4-10.2); Carbon Dioxide 34 mmol/L (22-32); Chloride 99 mmol/L (98-107); Estimated Glomerular Filt Rate > 60 mL/min (>60); Globulin 3.1 g/dL (1.7-4.1); Glucose 241 mg/dL (80-110); HEMOLYSIS 28 (0-50); Potassium 4.5 mmol/L (3.4-5.1); Sodium 139 mmol/L (137-145); Total Protein 7.1 g/dL (6.3-8.2)
--- NOTE | 2022-04-29 17:18 | PC.NURSE ---
Addendum entered by Delmar Lees R.N. 04/29/22 17:31: Asked provider if wanted cardiac labs such as trop or BNP. No new orders at this time. Original Note: Provider aware of patient vitals.
== END 2022-04-29 18:34 | disposition home or self-care (01) ==
PROVIDERS: Emergency Provider Family Medicine Addiction Medicine; PCP Family Medicine
DX: S22.42XA Multiple fractures of ribs, left side, initial encounter for closed fracture (principal); I10 Essential (primary) hypertension; R00.0 Tachycardia, unspecified; W01.0XXA Fall on same level from slipping, tripping and stumbling without subsequent striking against object, initial encounter
CPT/HCPCS: 71260; 74177; 80053; 85025; 93005; 93010; 99284; Q9967

== ENCOUNTER → 2022-05-07 11:36 | Outpatient (CLI) | payer MEDICARE, OTHER, SELFPAY ==
[2022-05-07 12:20] LABS: Add Manual Diff / Slide Review NO; Basophils Absolute Auto 0 /uL (0-100); Basophils Percent Auto 0.6 % (0-2); Eosinophils Absolute Auto 200 /uL (0-450); Eosinophils Percent Auto 2.2 % (2-4); Hematocrit 46.7 % (41-53); Hemoglobin 15.4 g/dL (13.5-17.5); Lymphocytes Absolute Auto 1800 /uL (1100-4500); Lymphocytes Percent Auto 25.4 % (25-40); Mean Corpuscular Hemoglobin 29.6 PG (26-34); Mean Corpuscular Volume 89.9 fL (80-100); Monocytes Absolute Auto 600 /uL (0-900); Monocytes Percent Auto 8.4 % (3-14); Neutrophils Absolute Auto 4500 /uL (1500-7000); Neutrophils Percent Auto 63.4 % (50-75); Platelet Count 206 X10^3/uL (150-400); Red Blood Cell Count 5.19 X10^6/uL (4.5-5.9); Red Cell Distribution Width 17.1 % (11.6-14.8)
[2022-05-07 13:14] LABS: Alanine Aminotransferase 25 IU/L (<50); Albumin 3.9 g/dL (3.5-5.0); Albumin Globulin Ratio 1.3 (1.0-2.8); Alkaline Phosphatase 77 U/L (38-126); Aspartate Aminotransferase 32 IU/L (17-59); BUN Creatinine Ratio 16.4 (6-22); Blood Urea Nitrogen 12 mg/dL (9-20); Calcium 8.8 mg/dL (8.4-10.2); Carbon Dioxide 33 mmol/L (22-32); Chloride 99 mmol/L (98-107); Estimated Glomerular Filt Rate > 60 mL/min (>60); Globulin 2.9 g/dL (1.7-4.1); Glucose 144 mg/dL (80-110); HEMOLYSIS < 15 (0-50); Potassium 3.8 mmol/L (3.4-5.1); Sodium 139 mmol/L (137-145); Total Protein 6.8 g/dL (6.3-8.2); Uric Acid 5.5 mg/dL (3.5-8.5)
[2022-05-08 05:27] LABS: Labcorp Hemoglobin (Hb) A1c 7.5 % (4.8-5.6)
== END ==
PROVIDERS: PCP Family Medicine; Referring Provider Family Medicine; Visit Provider Family Medicine
DX: K25.9 Gastric ulcer, unspecified as acute or chronic, without hemorrhage or perforation (principal); M10.9 Gout, unspecified; E11.9 Type 2 diabetes mellitus without complications; I10 Essential (primary) hypertension
CPT/HCPCS: 36415; 80053; 83036; 84443; 84550; 85025

== ENCOUNTER 2023-02-19 00:59 | Emergency (ER) | payer MEDICARE, OTHER, SELFPAY ==
[2023-02-19] VITALS (30 sets, daily range): BP systolic 87–147; BP diastolic 39–102; PULSE 92–106; RESP 12–26; TEMP 35–36.9; O2SAT 84–99; BMI 35.6
--- NOTE | 2023-02-19 | DI.RAD.S_ITS ---
PROCEDURE: XR FEMUR LT 1V INDICATIONS: traction TECHNIQUE: 2 views of the femur were acquired. COMPARISON: [facility], CR, XR FEMUR LT 1V, 02/19/2023, 1:31. FINDINGS: Bones: There is an oblique mid femoral shaft fracture with angulation. Angulation is improved. No suspicious bony lesions. Note is made of total knee arthroplasty which appears intact. Soft tissues: No suspicious soft tissue calcifications or masses. IMPRESSION: Oblique fracture of the femoral shaft. The alignment is improved but significant displacement persists. No significant discrepancy with the call center nurse radiology preliminary report. Dictated by: Jos Esteban M.D. on 02/19/2023 at 7:52 Approved by: Jos Esteban M.D. on 02/19/2023 at 7:54
--- NOTE | 2023-02-19 01:18 | DI.RAD.S_ITS ---
PROCEDURE: XR FEMUR RT 1V INDICATIONS: fall TECHNIQUE: 1 views of the femur were acquired. COMPARISON: [facility], CR, XR PELVIS 1-2V, 02/19/2023, 1:31. FINDINGS: Bones: There is an oblique fracture involving the distal femoral shaft with 1.8 cm medial displacement of the distal fracture fragment and mild angulation. Note is made of total knee arthroplasty with intact prosthesis. Soft tissues: No suspicious soft tissue calcifications or masses. IMPRESSION: Distal femoral shaft fracture with displacement and angulation. Dictated by: Jos Esteban M.D. on 02/19/2023 at 7:50 Approved by: Jos Esteban M.D. on 02/19/2023 at 7:51
--- NOTE | 2023-02-19 01:18 | DI.CT.S_ITS ---
PROCEDURE: CT CHEST ABD PEL W CON INDICATIONS: fall TECHNIQUE: After the administration of intravenous contrast, 5 mm thick sections acquired from the lung apices to the symphysis. 5 mm coronal and sagittal reformats were performed, with additional 7 mm MIP reformats through the lungs. For radiation dose reduction, the following was used: automated exposure control, adjustment of mA and/or kV according to patient size. COMPARISON: [facility], CR, XR LUMBAR SPINE 2 OR 3 VIEWS, 12/05/2021, 14:56. [facility], CR, XR FEMUR RT 1V, 02/19/2023, 1:31. [facility], CR, XR FEMUR LT 1V, 02/19/2023, 1:31. [facility], CR, XR PELVIS 1-2V, 02/19/2023, 1:31. [facility], CR, XR FEMUR LT 1V, 02/19/2023, 2:54. [facility], CT, CT CHEST ABD PEL W CON, 04/29/2022, 15:51. FINDINGS: Image quality: Excellent. CHEST: Lower Neck: No enlarged lymph nodes. Thyroid: No thyroid nodules which require sonographic follow up, per consensus guidelines. Axillae: No enlarged lymph nodes. Chest Wall: There are non-acute multiple rib fractures bilaterally. Lungs and Pleura: No pneumothorax or pleural effusions. No consolidation or suspicious nodules. Heart: Heart size is normal. No pericardial effusion. There is three-vessel coronary artery calcifications. Thoracic Vessels: The aorta and pulmonary arteries demonstrate normal size. Mediastinum and Janel: No enlarged lymph nodes. Esophagus: No wall thickening. Small hiatal hernia. ABDOMEN: Liver: No solid mass. Normal size. Mild hepatic steatosis. Gallbladder: No radiopaque gallstones or wall thickening. Biliary ducts: No biliary dilation. Pancreas: No ductal dilation. Spleen: Size is within normal limits. Adrenal Glands: There is a 2.8 cm right adrenal nodule, most likely a benign adenoma. In addition, there is a 1 3 cm left adrenal nodule. Kidneys and Ureters: No hydronephrosis. No solid mass. No complex renal cystic lesion which requires follow up. There is a 1.5 cm exophytic cortical cyst in right kidney. Stomach and Bowel: Normal colonic caliber, without significant wall thickening. Peritoneum: No abnormal intraperitoneal fluid. No free air. Ventral Wall: No hernia. Abdominal Nodes: No retroperitoneal or mesenteric adenopathy by size criteria. Vessels: Aorta and inferior vena cava are normal in size. PELVIS: Pelvic Organs: Unremarkable. Bladder: Unremarkable. Pelvic Nodes: No enlarged lymph nodes. Miscellaneous: No inguinal hernias are seen. There are hydroceles in scrotum bilaterally. Bones: There is moderate compression fracture of L2 (assuming 12 rib-bearing thoracic vertebrae), unchanged in severity from 04/29/2022. Transitional anatomy of lumbar lies S1. Scoliosis. Severe degenerative changes at L3-L4. Bilateral femoral shaft fractures are noted. Please see separate x-ray reports. IMPRESSION: 1. No acute traumatic visceral injuries in thorax, abdomen or pelvis. 2. Stable chronic compression fracture of L2. Please note transitional anatomy and confirm vertebral levels before any interventional procedures or surgeries. 3. Multiple nonacute rib fractures bilaterally. 4. Bilateral adrenal nodules, most likely adrenal adenomas. Consider adrenal protocol CT or MRI for follow-up evaluation. 5. Hepatic steatosis. 6. Small hiatal hernia. 7. Coronary artery atherosclerosis. Dictated by: Jos Esteban M.D. on 02/19/2023 at 7:13 Approved by: Jos Esteban M.D. on 02/19/2023 at 10:02
--- NOTE | 2023-02-19 01:18 | DI.CT.S_ITS ---
PROCEDURE: CT CERVICAL SPINE WO CON INDICATIONS: fall TECHNIQUE: Noncontrast 3 mm thick sections acquired from the skull base to the T4 level. Sagittal and coronal reformats were then constructed. For radiation dose reduction, the following was used: automated exposure control, adjustment of mA and/or kV according to patient size. COMPARISON: None. FINDINGS: Image quality: Excellent. Bones: No fractures or dislocations. There is degenerative disc disease, severe at C6-C7, [id number] at other levels. Trace retrolisthesis of C3 on C4 and trace anterolisthesis of C5 on C6. Bilateral facet arthropathy, most pronounced and severe at C2-C3, C3-C4 and C4-C5. Severe atlantoaxial joint degeneration. Visualized superior ribs are intact. Soft tissues: Prevertebral soft tissues are normal in thickness. No paravertebral hematomas. No apical pneumothoraces. IMPRESSION: 1. No displaced fracture or traumatic subluxation. 2. Severe degenerative disc and facet disease in cervical spine as described. Dictated by: Jos Esteban M.D. on 02/19/2023 at 7:09 Approved by: Jos Esteban M.D. on 02/19/2023 at 7:12
--- NOTE | 2023-02-19 01:18 | DI.RAD.S_ITS ---
PROCEDURE: XR FEMUR LT 1V INDICATIONS: fall TECHNIQUE: 1 views of the femur were acquired. COMPARISON: X-ray left knee, 12/30/2018. FINDINGS: Bones: There is an oblique fracture involving the femoral shaft with displacement and angulation. No suspicious bony lesions. Note is made of right knee total arthroplasty, which appears intact. Soft tissues: No suspicious soft tissue calcifications or masses. IMPRESSION: Left femoral shaft fracture with displacement and angulation. No significant discrepancy with the night shift manager radiology preliminary report. Dictated by: Jos Esteban M.D. on 02/19/2023 at 7:46 Approved by: Jos Esteban M.D. on 02/19/2023 at 7:47
--- NOTE | 2023-02-19 01:18 | DI.CT.S_ITS ---
PROCEDURE: CT HEAD/BRAIN WO CON INDICATIONS: fall TECHNIQUE: Noncontrast 4.5 mm thick angled axial sections acquired from the foramen magnum to the vertex, with coronal and sagittal reformats. For radiation dose reduction, the following was used: automated exposure control, adjustment of mA and/or kV according to patient size. COMPARISON: None. FINDINGS: Image quality: Diagnostic. CSF spaces: Basal cisterns are patent. No extra-axial fluid collections. The ventricles are symmetric in size and shape. Brain: No intracranial bleeds or masses. There is cerebral volume loss for age, with resultant ventricular and sulcal prominence. There are periventricular and deep white matter chronic small vessel ischemic changes. There is intracranial internal carotid artery atherosclerosis. Skull and face: Calvarium and visualized facial bones appear intact, without suspicious lesions. Sinuses: Visualized sinuses and mastoids are clear. IMPRESSION: 1. No acute intracranial abnormalities. 2. Cerebral volume loss and chronic microvascular ischemic changes. No significant discrepancy with the film processing shift supervisor radiology preliminary report. Dictated by: Jos Esteban M.D. on 02/19/2023 at 7:08 Approved by: Jos Esteban M.D. on 02/19/2023 at 7:08
--- NOTE | 2023-02-19 01:18 | DI.RAD.S_ITS ---
PROCEDURE: XR PELVIS 1-2V INDICATIONS: fall TECHNIQUE: 1 view(s) of the pelvis acquired. COMPARISON: [facility], CR, XR FEMUR RT 1V, 02/19/2023, 1:31. [facility], CR, XR FEMUR LT 1V, 02/19/2023, 1:31. [facility], CR, XR FEMUR LT 1V, 02/19/2023, 2:54. FINDINGS: Bones: No fractures or dislocations. No suspicious bony lesions. Mild osteoarthritic changes in hips and sacroiliac joints bilaterally. Mild degenerative disc and facet disease in lumbar spine. Soft tissues: Visualized bowel gas pattern is normal. No suspicious soft tissue calcifications. IMPRESSION: No acute bony abnormality. No significant discrepancy with the production shift supervisor radiology preliminary report. Dictated by: Jos Esteban M.D. on 02/19/2023 at 7:45 Approved by: Jos Esteban M.D. on 02/19/2023 at 7:46
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
[2023-02-19] MEDS: MORPHINE 4 MG/ML INJ IV (01:58)
[2023-02-19] MEDS: SODIUM CHLORIDE 0.9% 1,000 ML 1000 ML IV (01:59)
[2023-02-19 02:02] LABS: Hematocrit 34.7 % (41-53); Hemoglobin 10.4 g/dL (13.5-17.5); Mean Corpuscular Hemoglobin 23.9 PG (26-34); Mean Corpuscular Volume 79.6 fL (80-100); Platelet Count 575 X10^3/uL (150-400); Red Blood Cell Count 4.36 X10^6/uL (4.5-5.9); Red Cell Distribution Width 21.4 % (11.6-14.8)
[2023-02-19 02:04] LABS: Add Manual Diff / Slide Review YES
[2023-02-19 02:09] LABS: Alanine Aminotransferase 22 IU/L (<50); Albumin 3.9 g/dL (3.5-5.0); Albumin Globulin Ratio 1.5 (1.0-2.8); Alkaline Phosphatase 61 U/L (38-126); Aspartate Aminotransferase 41 IU/L (17-59); BUN Creatinine Ratio 12.5 (6-22); Bilirubin Total 0.6 mg/dL (0.2-1.3); Blood Urea Nitrogen 14 mg/dL (9-20); Calcium 8.7 mg/dL (8.4-10.2); Carbon Dioxide 19 mmol/L (22-32); Chloride 93 mmol/L (98-107); Creatine Kinase 812 U/L (55-170); Estimated Glomerular Filt Rate > 60 mL/min (>60); Globulin 2.6 g/dL (1.7-4.1); Glucose 176 mg/dL (80-110); HEMOLYSIS < 15 (0-50); Lactate (Lactic Acid) 9.7 mmol/L (0.7-2.1); Potassium 4.1 mmol/L (3.4-5.1); Sodium 131 mmol/L (137-145); Total Protein 6.5 g/dL (6.3-8.2)
[2023-02-19 02:20] LABS: Troponin I 0.025 ng/mL (0.01-0.034)
[2023-02-19 02:23] LABS: Neutrophils Absolute Manual 21060 /uL (3000-5900); Total Cells Counted 100
[2023-02-19 02:24] LABS: Anisocytosis 1+; Hypochromasia 1+; Microcytosis 1+
--- NOTE | 2023-02-19 02:25 | PC.NURSE ---
Hare-traction splint applied to LLE by HANK & RN. Repeat doppler pulse check post splint application reveals loss of pulse. Ankle/ distal extremity tensioner slowly released until return of doppler pulse confirmed.
[2023-02-19] MEDS: HYDROMORPHONE 1 MG INJ IV ×2 (02:38→03:40)
[2023-02-19 03:30] LABS: Hematocrit 31.4 % (41-53); Hemoglobin 9.4 g/dL (13.5-17.5)
[2023-02-19 03:34] LABS: Reflexed Lactate in 2 Hours Y
== END 2023-02-19 03:35 | disposition short-term general hospital (02) ==
PROVIDERS: Emergency Provider Emergency Medicine; PCP Family Medicine
DX: S72.402A Unspecified fracture of lower end of left femur, initial encounter for closed fracture (principal); S72.401A Unspecified fracture of lower end of right femur, initial encounter for closed fracture; R00.0 Tachycardia, unspecified; I95.9 Hypotension, unspecified; W01.0XXA Fall on same level from slipping, tripping and stumbling without subsequent striking against object, initial encounter; Z79.01 Long term (current) use of anticoagulants
CPT/HCPCS: 36415; 36430; 70450; 71260; 72125; 72170; 73551; 74177; 80053; 82550; 83605; 84484; 85007; 85014; 85018; 85025; 86850; 86900; 86901; 93005; 93010; 96374; 96375; 96376; 99285; 99291; 99292; P9016; G0390; J1170; J2270; Q9967

== ENCOUNTER → 2023-05-07 11:26 | Outpatient (CLI) | payer MEDICARE, OTHER, SELFPAY ==
[2023-05-07 12:27] LABS: Add Manual Diff / Slide Review NO; Basophils Absolute Auto 100 /uL (0-100); Basophils Percent Auto 0.9 % (0-2); Eosinophils Absolute Auto 200 /uL (0-450); Eosinophils Percent Auto 2.5 % (2-4); Hematocrit 38.3 % (41-53); Hemoglobin 12.5 g/dL (13.5-17.5); Lymphocytes Absolute Auto 1700 /uL (1100-4500); Lymphocytes Percent Auto 23.1 % (25-40); Mean Corpuscular HGB Conc 32.6 % (30-36); Mean Corpuscular Hemoglobin 29.5 PG (26-34); Mean Corpuscular Volume 90.5 fL (80-100); Monocytes Absolute Auto 900 /uL (0-900); Monocytes Percent Auto 11.7 % (3-14); Neutrophils Absolute Auto 4600 /uL (1500-7000); Neutrophils Percent Auto 61.8 % (50-75); Platelet Count 366 X10^3/uL (150-400); Red Blood Cell Count 4.23 X10^6/uL (4.5-5.9); Red Cell Distribution Width 16.7 % (11.6-14.8); White Blood Cell Count 7.5 X10^3/uL (4.5-11.0)
[2023-05-07 12:42] LABS: Alanine Aminotransferase 15 IU/L (<50); Albumin 3.7 g/dL (3.5-5.0); Albumin Globulin Ratio 1.3 (1.0-2.8); Alkaline Phosphatase 112 U/L (38-126); Aspartate Aminotransferase 21 IU/L (17-59); BUN Creatinine Ratio 17.6 (6-22); Bilirubin Total 0.8 mg/dL (0.2-1.3); Blood Urea Nitrogen 15 mg/dL (9-20); Calcium 9.8 mg/dL (8.4-10.2); Carbon Dioxide 32 mmol/L (22-32); Chloride 101 mmol/L (98-107); Estimated Glomerular Filt Rate > 60 mL/min (>60); Globulin 2.8 g/dL (1.7-4.1); Glucose 123 mg/dL (80-110); HEMOLYSIS < 15 (0-50); Potassium 4.9 mmol/L (3.4-5.1); Sodium 138 mmol/L (137-145); Total Protein 6.5 g/dL (6.3-8.2)
== END ==
PROVIDERS: PCP Family Medicine; Referring Provider Family Medicine; Visit Provider Family Medicine
DX: E11.9 Type 2 diabetes mellitus without complications (principal); I10 Essential (primary) hypertension; I50.9 Heart failure, unspecified
CPT/HCPCS: 36415; 80053; 83036; 85025

== ENCOUNTER 2023-06-24 11:29 | Emergency (ER) | payer MEDICARE, MEDICAID, OTHER, SELFPAY ==
[2023-06-24 11:42] VITALS: BP 177/89; PULSE 89; RESP 18; TEMP 36.3; O2SAT 99; BMI 32.5
--- NOTE | 2023-06-24 12:14 | ED_ITS ---
HPI - General Adult General Chief complaint: Hypertension Stated complaint: Hypertension Time Seen by Provider: 06/24/23 12:04 Source: patient and EMS Mode of arrival: EMS Limitations: no limitations History of Present Illness HPI narrative: Patient is a 77-year-old male. Has a known history of coronary artery disease and also hypertension. Physical therapy came to his house today for the 1st time and was noticed that his blood pressure was elevated. Patient was asymptomatic. They took the blood pressure again. Several phone calls were made and he was brought to the emergency department. He states that he was completely asymptomatic. He was actually run out of some of his blood pressure medications which is probably finch blood pressures have been elevated. Denies chest pain, shortness of breath, headache, urinary symptoms or balance issues. Related Data Home Medications Medication Instructions Recorded Confirmed atorvastatin 40 mg tablet 40 mg PO BEDTIME 05/07/23 05/07/23 carvedilol 6.25 mg tablet 6.25 mg PO BID 05/07/23 05/07/23 clopidogrel 75 mg tablet 75 mg PO DAILY 05/07/23 05/07/23 lisinopril 10 mg tablet 10 mg PO DAILY 05/07/23 05/07/23 methocarbamol 500 mg tablet 500 mg PO Q6H 05/07/23 05/07/23 ondansetron HCl 4 mg tablet 4 mg PO Q8H 05/07/23 05/07/23 pantoprazole 40 mg tablet,delayed 40 mg PO DAILY 05/07/23 05/07/23 release Previous Rx's Medication Instructions Recorded meloxicam 15 mg disintegrating 15 mg PO DAILY #90 tabs 07/21/19 tablet apixaban 5 mg tablet (Eliquis) 5 mg PO BID #180 tabs 05/11/21 allopurinol 100 mg tablet See Rx Instructions .Route 11/27/21 .COMPLEX #90 tabs blood sugar diagnostic (Contour #100 ea 04/16/22 Next Test Strips) blood-glucose meter (Contour Next #1 ea 04/16/22 EZ Meter kit) lancets 33 gauge (BD Ultra Fine #100 ea 05/08/22 Lancets) furosemide 20 mg tablet See Rx Instructions .Route 05/14/22 .COMPLEX #90 tabs metformin 500 mg tablet See Rx Instructions .Route 11/22/22 .COMPLEX #60 tabs duloxetine 60 mg capsule,delayed See Rx Instructions .Route 01/16/23 release .COMPLEX #90 ea apixaban 5 mg tablet (Eliquis) 5 mg PO BID #60 tabs 06/24/23 atorvastatin 40 mg tablet 40 mg PO QPM #30 tabs 06/24/23 clopidogrel 75 mg tablet 75 mg PO DAILY #30 tabs 06/24/23 furosemide 20 mg tablet (Lasix) 20 mg PO DAILY #30 tabs 06/24/23 lisinopril 10 mg tablet 10 mg PO DAILY #30 tabs 06/24/23 Allergies Allergy/AdvReac Type Severity Reaction Status Date / Time No Known Drug Allergies Allergy Verified 05/07/23 10:50 Review of Systems Review of Systems Narrative: See HPI Patient History Medical History Acute CT Congestive heart failure Compression fracture DVT (deep venous thrombosis) Back pain Steatosis Lumbar stenosis with neurogenic claudication Fatigue Obesity (BMI 30-39.9) Obstructive sleep apnea syndrome Gout GERD (gastroesophageal reflux disease) 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 Type 2 diabetes mellitus Polyarthralgia Vision disorder Plantar warts Ankle fracture Carpal tunnel syndrome Ankle pain Mumps (~1949) Measles (~1949) Chicken pox (~1949) Gastric ulcer (~2007) Colon polyps (~2004) Low testosterone (~2007) Depression (~1979) Psoriasis (~2008) Peptic ulcer disease Hypertension Surgical History History of heart artery stent Anesthesia History of shoulder surgery History of knee replacement (~2004) History of knee replacement Family History Mother Cancer Father CAD (coronary artery disease) Stroke Grandmother Cancer Social History marital status: lives independently: Yes caregiver/support person: No Smoking Status: Former smoker Tobacco: How many years used: 20 alcohol intake: current (Less than 1 a week ) Smoking Status: Former smoker alcohol intake frequency: 0-2 drinks per day Alcohol type: hard liquor Substance Use Type: does not use Exam Initial Vital Signs Initial Vital Signs: Vital Signs Temperature 97.3 F L 06/24/23 11:42 Pulse Rate 89 05/13/24 11:42 Respiratory Rate 18 06/24/23 11:42 Blood Pressure 177/89 H 06/24/23 11:42 Pulse Oximetry 99 06/24/23 11:42 Oxygen Delivery Method Room Air 06/24/23 11:42 Const General: cooperative, well developed and No ill appearing [facility] Head: normal to inspection Resp Effort & Inspection: normal respiratory effort Cardio Rate: regular rate Neuro General: patient alert and patient awake Course Vital Signs Vital signs: Vital Signs - 8 hr 06/24/23 11:42 Temperature 97.3 F L Pulse Rate 89 Respiratory Rate 18 Blood Pressure 177/89 H Pulse Oximetry 99 Oxygen Delivery Method Room Air Medical Decision Making MDM Narrative Medical decision making narrative: Patient has asymptomatic hypertension in the setting of baseline hypertension and not taking his medications. No workup required here in the emergency department. I did refill the medications that he needed. Will discharge home with instructions to follow up with his primary doctor. He was given return precautions. He expressed understanding and agreement. Discharge Plan Departure Patient Disposition: Home Clinical Impression: Hypertension Instructions: DI for High Blood Pressure Activity Restrictions/Additional Instructions: I recommend that you continue to take all of your medications as directed. Contact your primary doctor for a follow-up. Return to the emergency department for new or worsening symptoms. Prescriptions: New lisinopril 10 mg tablet 10 mg PO DAILY Qty: 30 0RF atorvastatin 40 mg tablet 40 mg PO QPM Qty: 30 0RF clopidogrel 75 mg tablet 75 mg PO DAILY Qty: 30 0RF furosemide [Lasix] 20 mg tablet 20 mg PO DAILY Qty: 30 0RF Eliquis 5 mg tablet 5 mg PO BID Qty: 60 0RF No Action allopurinol 100 mg tablet See Rx Instructions .ROUTE .COMPLEX Qty: 90 3RF Dose Instruction: Take 1 tablet by mouth once daily Rx Instructions: Take 1 tablet by mouth once daily (DME) lancets [BD Ultra Fine Lancets] 33 gauge misc See Rx Instructions .ROUTE .MEDSUPPLY Qty: 100 5RF Rx Instructions: Use to test blood glucose twice daily furosemide 20 mg tablet See Rx Instructions .ROUTE .COMPLEX Qty: 90 3RF Dose Instruction: Take 1 tablet by mouth once daily Rx Instructions: Take 1 tablet by mouth once daily metformin 500 mg tablet See Rx Instructions .ROUTE .COMPLEX Qty: 60 0RF Dose Instruction: TAKE 1 TABLET BY MOUTH TWICE DAILY .PLEASE HAVE FASTING LABS DONE AND MAKE A APPOINTMENT Rx Instructions: TAKE 1 TABLET BY MOUTH TWICE DAILY DUE FOR APPT WITH PCP- PLEASE SCHEDULE duloxetine 60 mg capsule,delayed release(DR/EC) See Rx Instructions .ROUTE .COMPLEX Qty: 90 0RF Dose Instruction: Take 1 capsule by mouth once daily Rx Instructions: Take 1 capsule by mouth once daily meloxicam 15 mg tablet,disintegrating 15 mg PO DAILY Qty: 90 1RF Eliquis 5 mg tablet 5 mg PO BID Qty: 180 1RF (DME) blood-glucose meter [Contour Next EZ Meter] Kit See Rx Instructions .ROUTE .MEDSUPPLY Qty: 1 0RF Rx Instructions: Use to test blood glucose twice daily (DME) Contour Next Test Strips Strip See Rx Instructions .ROUTE .COMPLEX Qty: 100 6RF Dose Instruction: USE 1 STRIP TO CHECK GLUCOSE TWICE DAILY Rx Instructions: USE 1 STRIP TO CHECK GLUCOSE ONCE DAILY atorvastatin 40 mg tablet 40 mg PO BEDTIME carvedilol 6.25 mg tablet 6.25 mg PO BID Rx Instructions: must administer with a meal/food clopidogrel 75 mg tablet 75 mg PO DAILY lisinopril 10 mg tablet 10 mg PO DAILY methocarbamol 500 mg tablet 500 mg PO Q6H ondansetron HCl 4 mg tablet 4 mg PO Q8H pantoprazole 40 mg tablet,delayed release (DR/EC) 40 mg PO DAILY Referrals: Kervin Canales DO [Primary Care Provider] - Stand Alone Forms: Patient Portal/API
== END 2023-06-24 12:27 | disposition home or self-care (01) ==
PROVIDERS: Emergency Provider Emergency Medicine; PCP Family Medicine
DX: I10 Essential (primary) hypertension (principal)
CPT/HCPCS: 99281; 99282